=== PATIENT | female | born 1965 | race Caucasian/White ===

== ENCOUNTER 2020-11-29 09:49 | Inpatient (IN) | payer OTHER, SELFPAY ==
[2020-11-29] VITALS (23 sets, daily range): BP systolic 100–152; BP diastolic 45–91; PULSE 53–156; RESP 16–22; TEMP 36.3–36.8; O2SAT 96–99; BMI 21.2
--- NOTE | ~2020-11-29 | XR_ITS ---
EXAMINATION: XR CHEST CLINICAL INFORMATION: Chest pain, shortness of breath. Possible pneumonia COMPARISON: Chest radiographs 03/19/2020, 06/12/2019, 04/30/2019 TECHNIQUE: 2 views of the chest were obtained. FINDINGS: There are small bibasilar effusions blunting the costophrenic sulci. The heart is normal in size. The vascularity is normal. There is no lobar segmental airspace consolidation or definite groundglass opacity. There is no pneumothorax or pneumomediastinum. The hilar and mediastinal contours are normal. Bony structures show mild degenerative changes thoracic spine and small exostosis inferior right first costochondral junction similar to prior exam. XR/XR chest 2V IMPRESSION: Small bibasilar effusions.
--- NOTE | ~2020-11-29 | CT_ITS ---
EXAMINATION: CT ANGIOGRAM OF THE CHEST WITH AND WITHOUT CONTRAST (CT PULMONARY ANGIOGRAM FOR PE) CLINICAL INFORMATION: Chest pain, shortness of breath, elevated D-dimer. COMPARISON: None TECHNIQUE: Prior to contrast administration, noncontrast localization images were obtained. Subsequently, multidetector volumetric imaging was performed from the thoracic inlet to below the diaphragms following the administration of 80 mL Omnipaque 350 intravenous contrast. No contrast reaction reported Sagittal, coronal, and MIP oblique sagittal reformatted images were obtained on the CT workstation, uploaded to PACS, and reviewed. This CT examination was performed using dose optimization techniques as appropriate, variously including the following: *Automated exposure control *Adjustment of mA and/or kV according to patient size (this includes techniques or standardized protocols for targeted exams where dose is matched to indication/reason for exam; i.e. extremities or head) *Use of iterative reconstruction technique Total exam dose-length product 267 mGy-cm FINDINGS: QUALITY OF STUDY/CONTRAST BOLUS: Satisfactory. PULMONARY ARTERIES: No central or segmental pulmonary emboli. THORACIC AORTA: No aneurysm or dissection. LUNG: There is bilateral lower lobe compressive atelectasis/consolidation. The upper lungs are well expanded and clear. PLEURA: There are small bilateral pleural effusions. MEDIASTINUM: The heart size enlarged. No pericardial effusion. No hilar or mediastinal lymphadenopathy. No evidence of septal bowing or right heart strain. There are heterogenous-appearing thyroid lobes especially right lobe with calcification. CHEST WALL/AXILLA: No axillary or internal mammary lymphadenopathy. OSSEOUS STRUCTURES: No acute or suspicious osseous abnormality. UPPER ABDOMEN: Visualized liver, spleen, pancreas and bilateral adrenal glands are unremarkable. No reflux of contrast into the hepatic veins to suggest elevated right heart pressures. CT/CT angio chest PE protocol IMPRESSION: No evidence of PE. No evidence of aortic aneurysm or dissection. Bilateral small pleural effusions with underlying atelectasis/consolidation. Heterogenous thyroid gland with right lobe calcification. Correlation with thyroid ultrasound can be performed. VTE: negative.
--- NOTE | 2020-11-29 07:49 | ECG_ITS ---
Test Reason : TACHYCARDIA Blood Pressure : / mmHG Vent. Rate : 139 BPM Atrial Rate : 288 BPM P-R Int : 000 ms QRS Dur : 074 ms QT Int : 334 ms P-R-T Axes : 000 063 041 degrees QTc Int : 508 ms Atrial fibrillation with premature ventricular or aberrantly conducted complexes with rapid ventricular response Abnormal ECG When compared with ECG of 29-NOV-2020 09:55, Atrial fibrillation with rapid ventricular response has replaced Sinus rhythm Non-specific change in ST segment in Lateral leads Referred By: Martell Aquino Electronically Signed By:DULCE JAIME MD
--- NOTE | 2020-11-29 09:55 | ECG_ITS ---
Test Reason : CHEST PAIN Blood Pressure : / mmHG Vent. Rate : 113 BPM Atrial Rate : 113 BPM P-R Int : 136 ms QRS Dur : 072 ms QT Int : 316 ms P-R-T Axes : 054 068 055 degrees QTc Int : 433 ms Sinus tachycardia Biatrial enlargement Nonspecific T wave abnormality [place] depressions- consider pericarditis Abnormal ECG When compared with ECG of 19-MAR-2020 17:00, Vent. rate has increased BY 37 BPM [place] depressions present Referred By: Martell Aquino Electronically Signed By:Esau Campbell
--- NOTE | 2020-11-29 10:55 | ED_ITS ---
HPI - Chest Pain General Chief Complaint: Chest Pain Stated Complaint: chest pain Time Seen by Provider: 11/29/20 10:19 Source: patient Mode of arrival: ambulatory Limitations: no limitations History of Present Illness HPI narrative: 55-year-old female who presents emergency department for evaluation of chest pain x1 week. The patient states that she had a pericardial effusion and had a pericardial window done and June 2018. She states that since that time she has had at least 5 episodes of pericarditis. She states she was on colchicine for 1 year and continues to be on indomethacin. She states that 1 week prior she had a sudden onset midsternal and left-sided chest pain, she describes the pain as an aching throbbing sensation which is constant, worse with breathing worse with movement. She states the pain feels similar to her pericarditis type pain. She states the pain was getting better however yesterday she walked up a flight of stairs and then the pain got worse and since that time she has been feeling short of breath. She is also complaining of dyspnea on exertion. She denied fever, chills, cough, abdominal pain, nausea or vomiting. She states that her pain was 10/10 last night and is now 5/10 this morning. She last had an echocardiogram 1 year prior and she believes that her last CT scan of the chest was 1-2 years prior. Related Data Previous Rx's Medication Instructions Recorded indomethacin 75 mg 75 mg PO DAILY 90 Days #90 cap 09/29/20 capsule,extended release omeprazole 20 mg capsule,delayed 20 mg PO DAILY #90 cap 09/29/20 release Allergies Allergy/AdvReac Type Severity Reaction Status Date / Time No Known Allergies Allergy Unverified 06/08/20 15:23 [No Known Allergies*] Review of Systems Review of Systems: Yes all other systems are reviewed and are negative [facility] Past Medical History [facility] Narrative: Past medical history significant for recurrent pericarditis, diabetes mellitus, hypertension, hyperlipidemia. Past surgical history she has had 3 C sections, bilateral tubal ligation and herniorrhaphy. She denies tobacco, alcohol and drug use. Social History Social History Alcohol intake: never Smoking Status: Never smoker Use of substances other than those prescribed or required for medical reasons: No Advance Directives: No Advance Directives Information Provided: No Physical Exam Vital Signs: Vital Signs: Last Vital Signs Temp 98.0 F 11/29/20 10:20 Pulse 59 11/29/20 16:51 Resp 18 11/29/20 16:51 BP 120/69 11/29/20 16:51 Pulse Ox 99 11/29/20 16:51 Body Mass Index 21.2 Const: General: cooperative and healthy appearing Orientation/consciousness: oriented to person and oriented to place Limitations: no limitations HENMT: Head: Yes normal to inspection, Yes normocephalic and Yes atraumatic Ears: external ears normal General nose exam: Normal external nose present Face and sinus: Yes normal facial exam Mouth: Normal oral and palatal mucosa present Throat: Yes posterior oropharynx normal Eyes: Periorbital: periorbital findings normal Eyelids: Yes eyelids normal Conjunctivae: conjunctivae normal Sclerae: sclerae normal Corneas: corneas normal Pupils: Equal, round and reactive pupils present Direct Ophthalmoscopy: normal light reflex Neck: Neck: Yes full ROM, Yes no lymphadenopathy, Yes no meningeal signs, Yes trachea midline and Yes supple Chest: Chest palpation & inspection: normal inspection of the chest and normal palpation of entire chest wall Resp: Effort & Inspection: normal respiratory effort and able to speak in complete sentences Auscultation: clear to auscultation bilaterally Cardio: Rate: regular rate Rhythm: regular rhythm Heart sounds: S1 normal heart sound present, S2 normal heart sound present and no murmurs GI: Inspection: Yes normal to inspection Palpation (GI): Soft to palpation, nontender, no guarding, not rigid and No hepatosplenomegaly present : General: Yes no CVA tenderness Back/Spine/Pelvis: Back: no CVA tenderness Cervical Spine: normal cervical lordosis Thoracic/Lumbar Spine: thoracic and lumbar spine normal to inspection Skin: Lesions: no lesions Rashes: no rashes Wounds: no wounds Neuro: General: oriented to person, oriented to place and no meningeal signs Cranial nerves: Yes CN's II-XII intact bilaterally and Yes Equal, round and reactive pupils present Cognition (Neuro): normal cognition Motor exam (neuro): 5/5 motor strength present throughout Extrem: General: Yes normal to inspection and Yes full ROM Psych: Appearance: well kempt Mental Status: mental status grossly normal Speech and movement: Normal speech and movement present Affect: normal affect Attitude: cooperative Thought process: Normal thought process present Thought content: Normal thought content present Course Course Course Narrative: 55-year-old female with a history of recurrent pericarditis who presents emergency department for evaluation of 1 week of chest pain and shortness of breath, with symptoms getting worse 1 day prior. Physical examinat ion was unremarkable. Twelve EKG did reveal a sinus tachycardia otherwise was unremarkable. I did order a workup on this patient to include CBC, CMP, D- dimer, troponin and chest x-ray. She states that her pain is currently 10/10 and she was given Dilaudid 1 mg IV. 1312: The patient's troponin was below detectable limits which is reassuring. The patient's D-dimer was elevated at 3004, therefore I ordered a CT angiogram to rule out pulmonary embolism. The patient did get improvement of her pain with IV Dilaudid. On the radiation monitor the patient has had runs of tachycardia which look like atrial flutter at 150 beats per minute and one 4 beat run of ventricular tachycardia. The patient states that she could feel her heart palpitating but had no other associated symptoms. 1426: Patient continues to have more frequent bouts of ventricular tachycardia, atrial flutter and SVT. She was ordered to get Lopressor 5 mg IV. 1717: The CT pulmonary angiogram PE protocol revealed bilateral small pleural effusions but no evidence for pulmonary embolism. The patient was seen by our hospice team lead, Dr. Campbell. His impression is that the patient's symptoms are consistent with pericarditis and that the inflamed pericardium is causing the patient to have these arrhythmia. He recommended that the patient receive colchicine 1.2 mg orally now and metoprolol 25 mg orally. He recommended the patient be started on colchicine 0.6 mg p.o. b.i.d. and metoprolol 25 mg p.o. b.i.d.. I did discuss with the covering hospitalist and the patient will be admitted to [facility] for further management. MDM - Chest Pain Lab Data Result diagrams: 11/29/20 11:55 11/29/20 11:55 Labs: Lab Results 11/29/20 11/29/20 11/29/20 Range/Units 11:54 11:55 11:55 WBC 9.1 (4.8-10.8) X10*3/uL RBC 4.30 (4.20-5.50) X10*6/uL Hgb 13.3 (12.0-16.0) g/dl Hct 40.5 (37-47) % MCV 94.2 (80-98) fL MCH 30.9 (27.0-33.0) pg MCHC 32.8 (31.0-35.0) g/dl RDW 11.7 (11.0-16.0) % Plt Count 455 H (160-400) X10*3/uL MPV 9.9 (9.4-12.3) fL Immature Gran % (Auto) 0.8 H (0.0-0.4) % Neut % (Auto) 68.8 (45-73) % Lymph % (Auto) 21.9 (20-40) % [place] % (Auto) 6.8 (2-11) % Eos % (Auto) 1.4 (0-4) % Baso % (Auto) 0.3 (0-2) % Lymph # (Auto) 2.0 (1.2-4.9) X10*3/uL [place] # (Auto) 0.6 (0.1-1.2) X10*3/uL Eos # (Auto) 0.1 (0.0-0.4) X10*3/uL Baso # (Auto) 0.0 (0.0-0.2) X10*3/uL Abs Immat Gran (auto) 0.07 H (0.00-0.03) X10*3/uL Absolute Neuts (auto) 6.2 (2.0-8.3) X10*3/uL Absolute Nucleated RBC 0.000 (0.0-0.012) X10*3/uL Nucleated RBC % (auto) 0.0 (0.0-0.2) /100WBC D-Dimer 3004 NG/ML Sodium 137 (135-145) mmol/L Potassium 5.5 H (3.3-5.1) mmol/L Chloride 101 (96-108) mmol/L Carbon Dioxide 24 (22-29) mmol/L Anion Gap 18 (12-20) BUN 17 H (9-16) mg/dL Creatinine 0.96 (0.5-1.4) mg/dL Estim Creat Clear Calc 64.8 Estimated GFR 60 Random Glucose 326 H (60-115) mg/dL Calcium 10.1 (8.4-10.2) mg/dL Total Bilirubin 0.4 (0.0-1.0) mg/dL AST 16 (5-31) U/L ALT 22 (0-31) U/L Alkaline Phosphatase 99 (39-117) U/L Troponin I High Sens (<3.5-17.0) ng/L Total Protein 7.5 (6.5-8.0) g/dL Albumin 4.3 (3.5-5.0) g/dL 11/29/20 Range/Units 11:55 WBC (4.8-10.8) X10*3/uL RBC (4.20-5.50) X10*6/uL Hgb (12.0-16.0) g/dl Hct (37-47) % MCV (80-98) fL MCH (27.0-33.0) pg MCHC (31.0-35.0) g/dl RDW (11.0-16.0) % Plt Count (160-400) X10*3/uL MPV (9.4-12.3) fL Immature Gran % (Auto) (0.0-0.4) % Neut % (Auto) (45-73) % Lymph % (Auto) (20-40) % Harrison % (Auto) (2-11) % Eos % (Auto) (0-4) % Baso % (Auto) (0-2) % Lymph # (Auto) (1.2-4.9) X10*3/uL Harrison # (Auto) (0.1-1.2) X10*3/uL Eos # (Auto) (0.0-0.4) X10*3/uL Baso # (Auto) (0.0-0.2) X10*3/uL Abs Immat Gran (auto) (0.00-0.03) X10*3/uL Absolute Neuts (auto) (2.0-8.3) X10*3/uL Absolute Nucleated RBC (0.0-0.012) X10*3/uL Nucleated RBC % (auto) (0.0-0.2) /100WBC D-Dimer NG/ML Sodium (135-145) mmol/L Potassium (3.3-5.1) mmol/L Chloride (96-108) mmol/L Carbon Dioxide (22-29) mmol/L Anion Gap (12-20) BUN (9-16) mg/dL Creatinine (0.5-1.4) mg/dL Estim Creat Clear Calc Estimated GFR Random Glucose (60-115) mg/dL Calcium (8.4-10.2) mg/dL Total Bilirubin (0.0-1.0) mg/dL AST (5-31) U/L ALT (0-31) U/L Alkaline Phosphatase (39-117) U/L Troponin I High Sens < 3.5 (<3.5-17.0) ng/L Total Protein (6.5-8.0) g/dL Albumin (3.5-5.0) g/dL ECG Data ECG #1: Attestation: I personally reviewed and interpreted this ECG as follows: Interpretation: 0955: Sinus tachycardia with a rate of 113, normal [place], QR S and QTC intervals, no ST segment elevation or depression, no UT interval depression, besides the tachycardia, this is a normal EKG. Discharge Plan Discharge Clinical Impression: Acute pericarditis Patient Disposition: Admitted As Inpatient Prescriptions: No Action indomethacin 75 mg capsule, extended release 75 mg PO DAILY 90 Days Qty: 90 RF: 1 omeprazole 20 mg capsule,delayed release(DR/EC) 20 mg PO DAILY Qty: 90 RF: 1
[2020-11-29] MEDS: HYDROmorphone HCl 1 MG/ML SYRINGE IVPUSH ×2 (11:59→20:18)
[2020-11-29 12:00] LABS: MANUAL DIFF FLAG NO
[2020-11-29 12:04] LABS: Basophils Percent Auto 0.3 % (0-2); Eosinophils Absolute Auto 0.1 X10*3/uL (0.0-0.4); Eosinophils Percent Auto 1.4 % (0-4); Hematocrit 40.5 % (37-47); Hemoglobin 13.3 g/dl (12.0-16.0); Imm Gran Abs Auto 0.07 X10*3/uL (0.00-0.03); Imm Gran Pct Auto 0.8 % (0.0-0.4); Lymphocytes Percent Auto 21.9 % (20-40); Mean Corpuscular HGB Conc 32.8 g/dl (31.0-35.0); Mean Corpuscular Hemoglobin 30.9 pg (27.0-33.0); Mean Corpuscular Volume 94.2 fL (80-98); Mean Platelet Volume 9.9 fL (9.4-12.3); Monocytes Absolute Auto 0.6 X10*3/uL (0.1-1.2); Monocytes Percent Auto 6.8 % (2-11); Neutrophils Absolute Auto 6.2 X10*3/uL (2.0-8.3); Neutrophils Percent Auto 68.8 % (45-73); Platelet Count 455 X10*3/uL (160-400); Red Cell Distribution Width 11.7 % (11.0-16.0); White Blood Count 9.1 X10*3/uL (4.8-10.8)
[2020-11-29 12:19] LABS: D Dimer 3004 NG/ML
[2020-11-29 12:37] LABS: Troponin-I High Sensitivity < 3.5 ng/L (<3.5-17.0)
[2020-11-29 13:00] LABS: Alanine Aminotransferase 22 U/L (0-31); Albumin Level 4.3 g/dL (3.5-5.0); Alkaline Phosphatase 99 U/L (39-117); Anion Gap 18 (12-20); Aspartate Amino Transferase 16 U/L (5-31); Bilirubin Total 0.4 mg/dL (0.0-1.0); Blood Urea Nitrogen 17 mg/dL (9-16); Calcium 10.1 mg/dL (8.4-10.2); Carbon Dioxide 24 mmol/L (22-29); Chloride 101 mmol/L (96-108); Creatinine Clr Calc Pharmacy 64.8; Estimated Glomerular Filt Rate 60; Glucose Random 326 mg/dL (60-115); Potassium 5.5 mmol/L (3.3-5.1); Sodium 137 mmol/L (135-145); Total Protein 7.5 g/dL (6.5-8.0)
--- NOTE | 2020-11-29 14:20 | PC.NURSE ---
pt has been having occasional runs of v-tach, pt remains asymptomatic. md has been at bedside to update pt of plan of care. pt to be moved to room 6 and will continue to be on environmental monitoring specialist. pt aware of plan of care. pt to be medicated with lopressor 5mg ivp. pt' heart on occassion up to 170's.
[2020-11-29] MEDS: Metoprolol Tartrate 5 MG/5 ML VIAL IVPUSH ×3 (14:29→15:41)
--- NOTE | 2020-11-29 14:29 | PC.NURSE ---
pt's rhythm was sinus tach 171 and decrease to 70 . md at bedside. pt is now in sinus tach again at 160
[2020-11-29] MEDS: iohexoL 350 MG/ML 100 ML INFUS..BTL IV (15:30)
--- NOTE | 2020-11-29 15:36 | CA_ITS ---
Transthoracic Echocardiogram Patient (Last, First, Middle): Sydney Mcghee A Gender: Female Date of : 1965 Age: 55 Procedure Date: 11/29/2020 Procedure Type: Transthoracic Echocardiogram Location: ER Height: 152.4 cm Weight: 63.5 kg BSA: 1.60 m2 Heart Rate: bpm BP: 118 / 90 mmHg [place] Attendant: Referring MD: Martell Aquino MD Symptoms: Chest pain, arrhythmia is, rule out pericarditis Study Quality: Fair Conclusions: - The left ventricular systolic function is normal. The visually estimated ejection fraction is between 55-60%. - Normal right ventricular cavity size and systolic function. Findings Left Ventricle Normal left ventricular cavity size. There is mildly increased left ventricular wall thickness. The left ventricular systolic function is normal. The visually estimated ejection fraction is between 55-60%. There is no evidence of regional wall motion abnormalities. There is abnormal septal motion with excessive respiratory change. Diastolic function is indeterminate on the basis of available data. Right Ventricle Normal right ventricular cavity size and systolic function. Venous The inferior vena cava is normal in size and collapses greater than 50% with inspiration. Pericardium/Pleural There is no evidence of pericardial effusion. Prior Study Comparison Changes noted compared to prior study dated: 06/14/2019. EF 55-60% (was hyperdynamic before) Measurements 2D Linear Measurements IVSd: 1.15 0.6-0.9/0.6-1.0 cm LVIDd: 3.41 3.9-5.3/4.2-5.9 cm LVIDd Index: 2.13 2.4-3.2/2.2-3.1 cm/m2 LVIDs: 2.37 2.0-3.6 cm LVPWd: 1.16 0.7-1.1 cm LV Mass: 153.40 67-162/88-224 g LV Mass Index: 95.87 43-95/49-115 g/m2 2D Systolic Function EF 4C: 60.60 >55% EF 2C: 52.30 >55% EF BiP: 55.30 >55% Updated in Other Vendor System with Status of Final Esau Campbell MD electronically signed on 11/30/2020 4:17:27 PM with status of Final
--- NOTE | 2020-11-29 16:39 | PC.NURSE ---
pt had echocardiogram done at bedside.
--- NOTE | 2020-11-29 16:50 | PC.NURSE ---
dr martin (hospice nurse) at bedside. pt aware of plan of care.
[2020-11-29 17:25] LABS: T4 Thyroxine 10.8 ug/dL (4.5-12.0); Thyroid Stimulating Hormone 0.87 uIU/mL (0.32-4.0)
--- NOTE | 2020-11-29 17:27 | PC.NURSE ---
hosp rd lane) at bedside, pt aware of plan of care for admission to hosp.
[2020-11-29] MEDS: Metoprolol Tartrate 25 MG TABLET PO (17:42)
[2020-11-29] MEDS: Colchicine 0.6 MG TABLET 1.2 MG PO (17:42)
--- NOTE | 2020-11-29 17:50 | P.HPHOSP_ITS ---
History of Present Illness Date of Service: 11/29/20 Chief Complaint: Chest pain This is a 55-year-old female with a history of recurrent pericarditis who presents to the emergency department with chest pain. Patient has had multiple episodes of pericarditis in the past. She had been taking colchicine but this w as discontinued last spring. She has been taking indomethacin. On Friday she began having intermittent chest pain on the left side of her chest which was worse with lying down. She has also had associated shortness of breath. Her pain felt similar to previous episodes of pericarditis. She denied any palpitations until she was in the emergency department today in the emergency department she was noted to have multiple runs of nonsustained V-tach, what appeared to be atrial flutter. Due to elevated D-dimer, she underwent CTA which was negative for PE or dissection. Lab work was otherwise unremarkable. She was evaluated by the combustion analyst in the emergency department and underwent beds gabrielle echocardiogram. The results of the echo are pending at this time. Cardiology recommended starting oral metoprolol as well as colchicine. Review of Systems Review of Systems: Yes all other systems are reviewed and are negative Constitutional: Constitutional: Denies chills and Denies fever(s) Cardiovascular: Cardiovascular: Reports chest pain, Denies leg edema, Denies lightheadedness, Reports palpitations and Reports dyspnea Respiratory: Respiratory: Denies cough and Reports dyspnea Gastrointestinal: Gastrointestinal: Denies abdominal pain Endocrine: Endocrine: Reports palpitations [facility] Medical History (Updated 11/29/20 @ 17:58 by GÉNESIS Hill) Diabetes HLD (hyperlipidemia) HTN (hypertension) Pericarditis Functional capacity: independent ambulation Family History (Updated 11/29/20 @ 17:59 by GÉNESIS Hill) Sister Pericarditis Family history: reviewed and not pertinent Surgical History (Updated 11/29/20 @ 17:58 by GÉNESIS Hill) H/O: hysterectomy S/P pericardial window creation Social History Alcohol intake: never Smoking Status: Never smoker Use of substances other than those prescribed or required for medical reasons: No Advance Directives: No Advance Directives Information Provided: No Meds Allergies Allergy/AdvReac Type Severity Reaction Status Date / Time No Known Allergies Allergy Unverified 06/08/20 15:23 [No Known Allergies*] Active Medications: Current Medications Generic Name Dose Route Start Last Admin Trade Name Rosemarie PRN Reason Stop Dose Admin Insulin Human Lispro 0 unit 11/29/20 21:00 Insulin Lispro 100 Unit/Ml 3 Ml Vial SUBCUT QIDACHS [facility] Protocol Pharmacy Consult 1 each 11/29/20 17:19 Consult Rx Perform Med Rec MISCELLANE ONCE PRN Consult order Home Medications Medication Instructions Recorded Confirmed Last Taken Type atorvastatin 1 tab PO DAILY 11/29/20 11/29/20 Unknown History lisinopril 1 tab PO DAILY 11/29/20 11/29/20 Unknown History metformin 1 tab PO BID 11/29/20 11/29/20 Unknown History omeprazole 1 cap PO DAILY 11/29/20 11/29/20 Unknown History Physical Exam Vital Signs and Narrative: Vital Signs: Last Vital Signs Temp 97.6 F 11/29/20 17:37 Pulse 60 11/29/20 17:42 Resp 19 11/29/20 17:37 BP 116/73 11/29/20 17:42 Pulse Ox 98 11/29/20 17:37 Body Mass Index 21.2 Const: General: cooperative, well developed, alert and awake Nutritional Appearance: well nourished Orientation/consciousness: patient oriented x3 HENMT: Head: Yes normocephalic and Yes atraumatic Eyes: Sclerae: sclerae normal Chest: Chest palpation & inspection: normal inspection of the chest Resp: Effort & Inspection: normal respiratory effort and no respiratory distress Auscultation: clear to auscultation bilaterally Cardio: Rate: regular rate Rhythm: regular rhythm GI: Palpation (GI): Soft to palpation and nontender Skin: General skin exam: no rashes or lesions noted Neuro: General: patient oriented x3 Cranial nerves: Yes CN's II-XII intact bilaterally and Yes Bilaterally intact EOM present Extrem: General: Yes normal to inspection Results Labs CBC and Chem 7: 11/29/20 11:55 11/29/20 11:55 Labs: Laboratory Results - last 24 hr 11/29/20 11/29/20 11/29/20 11:54 11:55 11:55 MCV 94.2 MCH 30.9 MCHC 32.8 RDW 11.7 Plt Count 455 H MPV 9.9 Immature Gran % (Auto) 0.8 H Neut % (Auto) 68.8 Lymph % (Auto) 21.9 [place] % (Auto) 6.8 Eos % (Auto) 1.4 Baso % (Auto) 0.3 Lymph # (Auto) 2.0 [place] # (Auto) 0.6 Eos # (Auto) 0.1 Baso # (Auto) 0.0 Abs Immat Gran (auto) 0.07 H Absolute Neuts (auto) 6.2 Absolute Nucleated RBC 0.000 Nucleated RBC % (auto) 0.0 D-Dimer 3004 Anion Gap 18 Estim Creat Clear Calc 64.8 Estimated GFR 60 Random Glucose 326 H Calcium 10.1 Total Bilirubin 0.4 AST 16 ALT 22 Alkaline Phosphatase 99 Troponin I High Sens Total Protein 7.5 Albumin 4.3 TSH 0.87 Thyroxine (T4) 10.8 11/29/20 11:55 MCV MCH MCHC RDW Plt Count MPV Immature Gran % (Auto) Neut % (Auto) Lymph % (Auto) [place] % (Auto) Eos % (Auto) Baso % (Auto) Lymph # (Auto) [place] # (Auto) Eos # (Auto) Baso # (Auto) Abs Immat Gran (auto) Absolute Neuts (auto) Absolute Nucleated RBC Nucleated RBC % (auto) D-Dimer Anion Gap Estim Creat Clear Calc Estimated GFR Random Glucose Calcium Total Bilirubin AST ALT Alkaline Phosphatase Troponin I High Sens < 3.5 Total Protein Albumin TSH Thyroxine (T4) Imaging Radiologist's Impressions: Impressions Chest X-Ray 11/29/20 10:54 IMPRESSION: Small bibasilar effusions. Chest CTA 11/29/20 13:08 IMPRESSION: No evidence of PE. No evidence of aortic aneurysm or dissection. Bilateral small pleural effusions with underlying atelectasis/consolidation. Heterogenous thyroid gland with right lobe calcification. Correlation with thyroid ultrasound can be performed. VTE: negative. Assessment and Plan (1) Acute pericarditis: Qualifiers: Pericarditis type: unspecified type Qualified Code(s): I30.9 - Acute pericarditis, unspecified Status: Acute This is a 55-year-old female with history of diabetes, hypertension, dyslipidemia, recurrent pericarditis status post pericardial window who presents to the emergency department with chest pain noted to have episodes of NSVT while in ED Chest pain Likely secondary to pericarditis hs trop <3.5 bedside echo done in ED, report pending Cardiology eval pt in ED, recommends colchicine NSVT may be r/t above pericarditis echo pending -metoprolol -check electrolytes with goal to keep K >4, mag >2 -cardiology following DM hold metformin due to recent contrast study -SSI, POCs HTN Hold lisinopril until repeat K returns HLD Continue statin dvt ppx - lovenox code status - full code This case was discussed with Dr. Pate
[2020-11-29 17:51] LABS: Magnesium 1.7 mg/dL (1.6-2.6)
--- NOTE | 2020-11-29 18:46 | PM.EVENT ---
Event Note Date of Service: 11/29/20 Event Note: Admission note the patient was seen and evaluated with GÉNESIS Adames. I agree with her note, assessment and plan with the following. In summary, a 55 years old lady with PMH of 2 diabetes, HTN, pericarditis who presents to the hospital complaining of 1 week history of chest pain which get worse this morning. The pain is intermittent and worse when she lays down. She has a history of pericarditis previously on multiple occasions. Noticed to have atrial fibrillation and NSVDs white in the emergency. Evaluated by Cardiology with plan to admit her for treatment of acute pericarditis. Chest pain Secondary to Acute pericarditis Negative troponin Pending echo Start colchicine and continue indomethacin NSVDs Cardiology evaluated the patient, likely from pancreatitis Start metoprolol Keep Mag above 2 Keep on telemetry Rest of evaluations by PA note.
[2020-11-29] MEDS: Magnesium Sulfate/H2O 2 GM/50 ML PIGGYBACK IV (19:34)
[2020-11-29 20:12] LABS: COVID-19 Test Negative (Negative)
[2020-11-29 20:27] LABS: Potassium 4.6 mmol/L (3.3-5.1)
[2020-11-29 21:19] LABS: Glucose, Whole Blood 221 mg/dL (60-115)
[2020-11-29] MEDS: ondansetron HCL 4 MG/2 ML VIAL IVPUSH (21:37)
[2020-11-29] MEDS: Insulin Lispro 100 UNIT/ML 3 ML VIAL SUBCUT (21:39)
[2020-11-29] MEDS: 0.9 % Sodium Chloride Flush 3 ML SYRINGE IVFLUSH (21:40)
[2020-11-30] VITALS (9 sets, daily range): BP systolic 100–125; BP diastolic 55–71; PULSE 56–80; RESP 16–20; TEMP 36.1–37; O2SAT 94–97
[2020-11-30] MEDS: Acetaminophen 325 MG TABLET 650 MG PO ×2 (00:02→23:03)
--- NOTE | 2020-11-30 00:15 | P.CONCA_ITS ---
History of Present Illness History of Present Illness Date of Service: 11/29/20 Requesting physician: Casey Nelson Chief complaint: Pericarditis Narrative: Pleasant 55-year-old female who was seen on 11/29/20 for chest pain ongoing for 2 weeks. She describes throbbing and pressure in the chest which is similar to her previous pericarditis episodes. She has 4 episodes in the past and had pericardial window for effusion in the past. She was on colchicine and i ndomethacin but was taken off of them. Pain is worse with laying back and better with sitting up. Pleuritic in nature. Elevated D dimer but no PE. CT did showed bilateral pleural effusions. She also had episodes of NSVT and atrial arrhythmia which was not captured on ECG but multiple runs of Afib or flutter. [facility] Past Medical History Medical History (Updated 11/30/20 @ 00:22 by Esau Campbell MD) Diabetes HLD (hyperlipidemia) HTN (hypertension) Pericarditis Functional capacity: independent ambulation Family History Family History (Updated 11/29/20 @ 17:59 by GÉNESIS Hill) Sister Pericarditis Family history: reviewed and not pertinent Surgical History Surgical History H/O: hysterectomy S/P pericardial window creation Social History Social History Household Members: Family Housing: House Do you presently have visiting nurse or other home services: No Alcohol intake: never Smoking Status: Never smoker Use of substances other than those prescribed or required for medical reasons: No Currently Displaying Signs/Symptoms of Drug Intoxication Withdrawal: No Have you been hit, kicked, punched, or otherwise hurt by someone within the past year? If so, by whom?: No Do you feel safe in your current relationship?: Yes Is there a partner from a previous relationship who is making you feel unsafe now?: No Are you made to feel afraid or neglected: No Advance Directives: No Advance Directives Information Provided: No Do you have thoughts of harming others: None Do you have a plan to hurt others: No Plan Recently lost weight without trying: No Meds Allergies Allergy/AdvReac Type Severity Reaction Status Date / Time No Known Allergies Allergy Unverified 06/08/20 15:23 [No Known Allergies*] Active Medications: Current Medications Generic Name Dose Route Start Last Admin Trade Name Freq PRN Reason Stop Dose Admin Acetaminophen 650 mg 11/29/20 21:22 11/30/20 00:02 Acetaminophen 325 Mg Tablet PO 650 mg Q6H PRN Administration Pain, Mild (Pain Scale 1-3) Atorvastatin Calcium 10 mg 11/30/20 09:00 Atorvastatin Calcium 10 Mg Tablet PO DAILY [facility] Colchicine 0.6 mg 11/30/20 09:00 Colchicine 0.6 Mg Tablet PO BID [facility] Docusate Sodium 100 mg 11/29/20 21:22 Docusate Sodium 100 Mg Capsule PO DAILY PRN Constipation Enoxaparin Sodium 40 mg 11/29/20 22:00 11/29/20 21:40 Enoxaparin Sodium 40 Mg/0.4 Ml Syringe SUBCUT Not Given Q24H [facility] Indomethacin 75 mg 11/30/20 09:00 Indomethacin 25 Mg Capsule PO DAILY [facility] Insulin Human Lispro 0 unit 11/29/20 21:00 11/29/20 21:39 Insulin Lispro 100 Unit/Ml 3 Ml Vial SUBCUT 4 unit QIDACHS [facility] Administration Protocol Metoprolol Tartrate 25 mg 11/30/20 09:00 Metoprolol Tartrate 25 Mg Tablet PO BID [facility] Protocol Morphine Sulfate 2 mg 11/29/20 21:22 Morphine Sulfate 2 Mg/Ml Cartridge IVPUSH Q4H PRN Pain, Severe (Pain Scale 7-10) Omeprazole 40 mg 11/30/20 06:30 Omeprazole 40 Mg Capsule.Dr PO DAILY@0630 [facility] Ondansetron HCl 4 mg 11/29/20 21:22 11/29/20 21:37 Ondansetron Hcl 4 Mg/2 Ml Vial IVPUSH 4 mg Q8H PRN Administration Nausea and Vomiting Pharmacy Consult 1 each 11/29/20 17:19 Consult Rx Perform Med Rec MISCELLANE ONCE PRN Consult order Sodium Chloride 3 ml 11/30/20 00:00 11/29/20 21:40 0.9 % Sodium Chloride Flush 3 Ml Syringe IVFLUSH 3 ml QSHIFT [facility] Administration Home Medications Medication Instructions Recorded Confirmed Last Taken Type atorvastatin 1 tab PO DAILY 11/29/20 11/29/20 Unknown History lisinopril 1 tab PO DAILY 11/29/20 11/29/20 Unknown History metformin 1 tab PO BID 11/29/20 11/29/20 Unknown History omeprazole 1 cap PO DAILY 11/29/20 11/29/20 Unknown History Physical Exam Vital Signs: Vital Signs: Last Vital Signs Temp 98.2 F 11/29/20 23:42 Pulse 67 11/29/20 23:42 Resp 18 11/29/20 23:42 BP 121/64 11/29/20 23:42 Pulse Ox 96 11/29/20 23:42 Body Mass Index 21.2 GENERAL APPEARANCE: in no acute distress, well developed, well nourished. HEENT: unremarkable. HEAD: normocephalic, atraumatic. NECK/THYROID: no carotid bruit, no jugular venous distention. SKIN: no suspicious lesions, warm and dry. HEART: no murmurs, regular rate and rhythm, S1, S2 normal. LUNGS: clear to auscultation bilaterally. ABDOMEN: normal, bowel sounds present, soft, nontender, nondistended. EXTREMITIES: no clubbing, cyanosis, or edema. PERIPHERAL PULSES: equal. NEUROLOGIC: nonfocal, alert and oriented. PSYCH: mood/affect full range. Results Labs and Meds Result diagrams: 11/29/20 11:55 11/29/20 19:45 Lab results: Laboratory Results - last 24 hr 11/29/20 11/29/20 11/29/20 11:54 11:55 11:55 WBC 9.1 RBC 4.30 Hgb 13.3 Hct 40.5 MCV 94.2 MCH 30.9 MCHC 32.8 RDW 11.7 Plt Count 455 H MPV 9.9 Immature Gran % (Auto) 0.8 H Neut % (Auto) 68.8 Lymph % (Auto) 21.9 [place] % (Auto) 6.8 Eos % (Auto) 1.4 Baso % (Auto) 0.3 Lymph # (Auto) 2.0 [place] # (Auto) 0.6 Eos # (Auto) 0.1 Baso # (Auto) 0.0 Abs Immat Gran (auto) 0.07 H Absolute Neuts (auto) 6.2 Absolute Nucleated RBC 0.000 Nucleated RBC % (auto) 0.0 D-Dimer 3004 Sodium 137 Potassium 5.5 H Chloride 101 Carbon Dioxide 24 Anion Gap 18 BUN 17 H Creatinine 0.96 Estim Creat Clear Calc 64.8 Estimated GFR 60 POC Glucose Random Glucose 326 H Calcium 10.1 Magnesium 1.7 Total Bilirubin 0.4 AST 16 ALT 22 Alkaline Phosphatase 99 Troponin I High Sens Total Protein 7.5 Albumin 4.3 TSH 0.87 Thyroxine (T4) 10.8 COVID-19 ([facility]) COVID-19 Clin Com 11/29/20 11/29/20 11/29/20 11:55 19:45 19:45 WBC RBC Hgb Hct MCV MCH MCHC RDW Plt Count MPV Immature Gran % (Auto) Neut % (Auto) Lymph % (Auto) [place] % (Auto) Eos % (Auto) Baso % (Auto) Lymph # (Auto) [place] # (Auto) Eos # (Auto) Baso # (Auto) Abs Immat Gran (auto) Absolute Neuts (auto) Absolute Nucleated RBC Nucleated RBC % (auto) D-Dimer Sodium Potassium 4.6 Chloride Carbon Dioxide Anion Gap BUN Creatinine Estim Creat Clear Calc Estimated GFR POC Glucose Random Glucose Calcium Magnesium Total Bilirubin AST ALT Alkaline Phosphatase Troponin I High Sens < 3.5 Total Protein Albumin TSH Thyroxine (T4) COVID-19 ([facility]) Negative COVID-19 Clin Com See Note 11/29/20 21:13 WBC RBC Hgb Hct MCV MCH MCHC RDW Plt Count MPV Immature Gran % (Auto) Neut % (Auto) Lymph % (Auto) [place] % (Auto) Eos % (Auto) Baso % (Auto) Lymph # (Auto) [place] # (Auto) Eos # (Auto) Baso # (Auto) Abs Immat Gran (auto) Absolute Neuts (auto) Absolute Nucleated RBC Nucleated RBC % (auto) D-Dimer Sodium Potassium Chloride Carbon Dioxide Anion Gap BUN Creatinine Estim Creat Clear Calc Estimated GFR POC Glucose 221 H Random Glucose Calcium Magnesium Total Bilirubin AST ALT Alkaline Phosphatase Troponin I High Sens Total Protein Albumin TSH Thyroxine (T4) COVID-19 ([facility]) COVID-19 Clin Com Imaging Radiologist's impression: Impressions Chest X-Ray 11/29/20 10:54 IMPRESSION: Small bibasilar effusions. Chest CTA 11/29/20 13:08 IMPRESSION: No evidence of PE. No evidence of aortic aneurysm or dissection. Bilateral small pleural effusions with underlying atelectasis/consolidation. Heterogenous thyroid gland with right lobe calcification. Correlation with thyroid ultrasound can be performed. VTE: negative. Assessment and Plan (1) Acute pericarditis: Qualifiers: Pericarditis type: unspecified type Qualified Code(s): I30.9 - Acute pericarditis, unspecified Status: Acute (2) Atrial arrhythmia: Status: Acute (3) NSVT (nonsustained ventricular tachycardia): Status: Acute Pleasant female with background of pericarditis presenting with another episode. Etiology is unclear. She also has bilateral pleural effusions. Start colchicine. Can use indomethacin with it but would not use group home. BB for the arrhythmia -not uncommon with pericarditis to have arrhythmia. If any sustained rhythm then ECG to confirm Afib/flutter. Currently holding off anticoagulation. She may need YONATAN at discharge. Will check echo to assess for RWMA given NSVT. This can also be Jamal phenomenon. Will check CRP. We will follow along with you.
[2020-11-30] MEDS: Omeprazole 40 MG CAPSULE.DR PO (05:16)
[2020-11-30 06:16] LABS: MANUAL DIFF FLAG NO
[2020-11-30 06:23] LABS: Basophils Percent Auto 0.4 % (0-2); Eosinophils Absolute Auto 0.2 X10*3/uL (0.0-0.4); Eosinophils Percent Auto 2.5 % (0-4); Hemoglobin 12.6 g/dl (12.0-16.0); Imm Gran Abs Auto 0.06 X10*3/uL (0.00-0.03); Imm Gran Pct Auto 0.7 % (0.0-0.4); Lymphocytes Absolute Auto 2.8 X10*3/uL (1.2-4.9); Lymphocytes Percent Auto 33.9 % (20-40); Mean Corpuscular HGB Conc 32.3 g/dl (31.0-35.0); Mean Corpuscular Hemoglobin 30.7 pg (27.0-33.0); Mean Corpuscular Volume 95.1 fL (80-98); Mean Platelet Volume 9.9 fL (9.4-12.3); Monocytes Absolute Auto 0.6 X10*3/uL (0.1-1.2); Monocytes Percent Auto 7.1 % (2-11); Neutrophils Absolute Auto 4.6 X10*3/uL (2.0-8.3); Neutrophils Percent Auto 55.4 % (45-73); Platelet Count 497 X10*3/uL (160-400); Red Cell Distribution Width 11.7 % (11.0-16.0); White Blood Count 8.3 X10*3/uL (4.8-10.8)
[2020-11-30 06:53] LABS: Anion Gap 13 (12-20); Blood Urea Nitrogen 24 mg/dL (9-16); Calcium 9.4 mg/dL (8.4-10.2); Carbon Dioxide 29 mmol/L (22-29); Chloride 100 mmol/L (96-108); Creatinine Clr Calc Pharmacy 73.8; Estimated Glomerular Filt Rate > 60; Glucose Random 229 mg/dL (60-115); Potassium 4.5 mmol/L (3.3-5.1); Sodium 137 mmol/L (135-145)
[2020-11-30 07:14] LABS: Glucose, Whole Blood 192 mg/dL (60-115)
[2020-11-30] MEDS: Insulin Lispro 100 UNIT/ML 3 ML VIAL SUBCUT ×4 (07:57→21:01)
[2020-11-30] MEDS: 0.9 % Sodium Chloride Flush 3 ML SYRINGE IVFLUSH ×3 (08:08→21:03)
[2020-11-30] MEDS: Indomethacin 25 MG CAPSULE 75 MG PO (09:45)
[2020-11-30] MEDS: Atorvastatin Calcium 10 MG TABLET PO (09:46)
[2020-11-30] MEDS: Colchicine 0.6 MG TABLET PO ×2 (09:46→21:03)
[2020-11-30] MEDS: Metoprolol Tartrate 25 MG TABLET PO ×2 (09:46→23:01)
[2020-11-30 11:05] LABS: Glucose, Whole Blood 267 mg/dL (60-115)
--- NOTE | 2020-11-30 11:28 | PM.PNCARD ---
Subjective Subjective Date of Service: 11/30/20 Interval history: Feeling better Physical Exam Vital Signs: Last Vital Signs Temp 97 F 11/30/20 07:03 Pulse 67 11/30/20 09:46 Resp 16 11/30/20 07:03 BP 120/68 11/30/20 09:46 Pulse Ox 96 11/30/20 07:03 Body Mass Index 21.2 GENERAL APPEARANCE: in no acute distress, well developed, well nourished. HEENT: unremarkable. HEAD: normocephalic, atraumatic. NECK/THYROID: no carotid bruit, no jugular venous distention. SKIN: no suspicious lesions, warm and dry. HEART: no murmurs, regular rate and rhythm, S1, S2 normal. LUNGS: clear to auscultation bilaterally. ABDOMEN: normal, bowel sounds present, soft, nontender, nondistended. EXTREMITIES: no clubbing, cyanosis, or edema. PERIPHERAL PULSES: equal. NEUROLOGIC: nonfocal, alert and oriented. PSYCH: mood/affect full range. Results Labs and Meds Result diagrams: 11/30/20 05:38 11/30/20 05:38 Lab results: Laboratory Results - last 24 hr 11/29/20 11/29/20 11/29/20 11:54 11:55 11:55 WBC 9.1 RBC 4.30 Hgb 13.3 Hct 40.5 MCV 94.2 MCH 30.9 MCHC 32.8 RDW 11.7 Plt Count 455 H MPV 9.9 Immature Gran % (Auto) 0.8 H Neut % (Auto) 68.8 Lymph % (Auto) 21.9 [place] % (Auto) 6.8 Eos % (Auto) 1.4 Baso % (Auto) 0.3 Lymph # (Auto) 2.0 [place] # (Auto) 0.6 Eos # (Auto) 0.1 Baso # (Auto) 0.0 Abs Immat Gran (auto) 0.07 H Absolute Neuts (auto) 6.2 Absolute Nucleated RBC 0.000 Nucleated RBC % (auto) 0.0 D-Dimer 3004 Sodium 137 Potassium 5.5 H Chloride 101 Carbon Dioxide 24 Anion Gap 18 BUN 17 H Creatinine 0.96 Estim Creat Clear Calc 64.8 Estimated GFR 60 POC Glucose Random Glucose 326 H Calcium 10.1 Magnesium 1.7 Total Bilirubin 0.4 AST 16 ALT 22 Alkaline Phosphatase 99 Troponin I High Sens Total Protein 7.5 Albumin 4.3 TSH 0.87 Thyroxine (T4) 10.8 COVID-19 ([facility]) COVID-19 [employer] 11/29/20 11/29/20 11/29/20 11:55 19:45 19:45 WBC RBC Hgb Hct MCV MCH MCHC RDW Plt Count MPV Immature Gran % (Auto) Neut % (Auto) Lymph % (Auto) [place] % (Auto) Eos % (Auto) Baso % (Auto) Lymph # (Auto) [place] # (Auto) Eos # (Auto) Baso # (Auto) Abs Immat Gran (auto) Absolute Neuts (auto) Absolute Nucleated RBC Nucleated RBC % (auto) D-Dimer Sodium Potassium 4.6 Chloride Carbon Dioxide Anion Gap BUN Creatinine Estim Creat Clear Calc Estimated GFR POC Glucose Random Glucose Calcium Magnesium Total Bilirubin AST ALT Alkaline Phosphatase Troponin I High Sens < 3.5 Total Protein Albumin TSH Thyroxine (T4) COVID-19 ([facility]) Negative COVID-19 [employer] See Note 11/29/20 11/30/20 11/30/20 21:13 05:38 05:38 WBC 8.3 RBC 4.10 L Hgb 12.6 Hct 39.0 MCV 95.1 MCH 30.7 MCHC 32.3 RDW 11.7 Plt Count 497 H MPV 9.9 Immature Gran % (Auto) 0.7 H Neut % (Auto) 55.4 Lymph % (Auto) 33.9 [place] % (Auto) 7.1 Eos % (Auto) 2.5 Baso % (Auto) 0.4 Lymph # (Auto) 2.8 [place] # (Auto) 0.6 Eos # (Auto) 0.2 Baso # (Auto) 0.0 Abs Immat Gran (auto) 0.06 H Absolute Neuts (auto) 4.6 Absolute Nucleated RBC 0.000 Nucleated RBC % (auto) 0.0 D-Dimer Sodium 137 Potassium 4.5 Chloride 100 Carbon Dioxide 29 Anion Gap 13 BUN 24 H Creatinine 0.84 Estim Creat Clear Calc 73.8 Estimated GFR > 60 POC Glucose 221 H Random Glucose 229 H Calcium 9.4 D Magnesium Total Bilirubin AST ALT Alkaline Phosphatase Troponin I High Sens Total Protein Albumin TSH Thyroxine (T4) COVID-19 ([facility]) COVID-NV[employer] 11/30/20 11/30/20 07:01 11:02 WBC RBC Hgb Hct MCV MCH MCHC RDW Plt Count MPV Immature Gran % (Auto) Neut % (Auto) Lymph % (Auto) [place] % (Auto) Eos % (Auto) Baso % (Auto) Lymph # (Auto) [place] # (Auto) Eos # (Auto) Baso # (Auto) Abs Immat Gran (auto) Absolute Neuts (auto) Absolute Nucleated RBC Nucleated RBC % (auto) D-Dimer Sodium Potassium Chloride Carbon Dioxide Anion Gap BUN Creatinine Estim Creat Clear Calc Estimated GFR POC Glucose 192 H 267 H Random Glucose Calcium Magnesium Total Bilirubin AST ALT Alkaline Phosphatase Troponin I High Sens Total Protein Albumin TSH Thyroxine (T4) COVID-19 ([facility]) COVID-19 Clin Com Imaging Radiologist's impression: Impressions Chest X-Ray 11/29/20 10:54 IMPRESSION: Small bibasilar effusions. Chest CTA 11/29/20 13:08 IMPRESSION: No evidence of PE. No evidence of aortic aneurysm or dissection. Bilateral small pleural effusions with underlying atelectasis/consolidation. Heterogenous thyroid gland with right lobe calcification. Correlation with thyroid ultrasound can be performed. VTE: negative. 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 She was started on colchicine and is doing much better. She had runs of atrial arrhythmia with differentials of atrial fibrillation and flutter while she was in the ER. She also had nonsustained VT. She was started on metoprolol and since then has not had any more arrhythmia. She is doing well with colchicine. I think indomethacin can be stopped at discharge. She should stay on colchicine long-term because she has had multiple recurrences. She said she tolerated colchicine the past quite well. Echocardiography was somewhat limited and we will do echo with [place] today for wall motion assessment. I think we do a cardiac event monitor on her as outpatient to make sure she does not develop more atrial fibrillation episodes because she was asymptomatic when she had atrial arrhythmia in the ER. Thank you for allowing me to participate in the care of your patient. Please feel free to contact me if you have any questions. Fall Risk Details Current Medications: Current Medications Generic Name Dose Route Start Last Admin Trade Name Freq PRN Reason Stop Dose Admin Acetaminophen 650 mg 11/29/20 21:22 11/30/20 00:02 Acetaminophen 325 Mg Tablet PO 650 mg Q6H PRN Administration Pain, Mild (Pain Scale 1-3) Atorvastatin Calcium 10 mg 11/30/20 09:00 11/30/20 09:46 Atorvastatin Calcium 10 Mg Tablet PO 10 mg DAILY [facility] Administration Colchicine 0.6 mg 11/30/20 09:00 11/30/20 09:46 Colchicine 0.6 Mg Tablet PO 0.6 mg BID [facility] Administration Docusate Sodium 100 mg 11/29/20 21:22 Docusate Sodium 100 Mg Capsule PO DAILY PRN Constipation Enoxaparin Sodium 40 mg 11/29/20 22:00 11/29/20 21:40 Enoxaparin Sodium 40 Mg/0.4 Ml Syringe SUBCUT Not Given Q24H [facility] Indomethacin 75 mg 11/30/20 09:00 11/30/20 09:45 Indomethacin 25 Mg Capsule PO 75 mg DAILY [facility] Administration Insulin Human Lispro 0 unit 11/29/20 21:00 11/30/20 07:57 Insulin Lispro 100 Unit/Ml 3 Ml Vial SUBCUT 2 unit QIDACHS [facility] Administration Protocol Metoprolol Tartrate 25 mg 11/30/20 09:00 11/30/20 09:46 Metoprolol Tartrate 25 Mg Tablet PO 25 mg BID [facility] Administration Protocol Morphine Sulfate 2 mg 11/29/20 21:22 Morphine Sulfate 2 Mg/Ml Cartridge IVPUSH Q4H PRN Pain, Severe (Pain Scale 7-10) Omeprazole 40 mg 11/30/20 06:30 11/30/20 05:16 Omeprazole 40 Mg Capsule. PO 40 mg DAILY@0630 [facility] Administration Ondansetron HCl 4 mg 11/29/20 21:22 11/29/20 21:37 Ondansetron Hcl 4 Mg/2 Ml Vial IVPUSH 4 mg Q8H PRN Administration Nausea and Vomiting Pharmacy Consult 1 each 11/29/20 17:19 Consult Rx Perform Med Rec MISCELLANE ONCE PRN Consult order Sodium Chloride 3 ml 11/30/20 00:00 11/30/20 08:08 0.9 % Sodium Chloride Flush 3 Ml Syringe IVFLUSH 3 ml QSHIFT [facility] Administration Time Spent With Patient Time: Total time spent is greater than 50% in coordination of care (as documented) at patient's floor/unit and/or counseling patient: Time with patient: less than 15 minutes
--- NOTE | 2020-11-30 14:37 | P.PNIM_ITS ---
Subjective Subjective Date of Service: 11/30/20 Interval History: the patient was seen and evaluated this morning Laying in bed, feels comfortable Home arrhythmias noted overnight, mainly atrial, it no ventricular arrhythmias Denies any fever, chills or shortness of breath No reported other overnight events. Systemic review: No fever, chills or weakness Mild chest tightness but no pain anymore, no palpitation No shortness of breath or coughing No abdominal pain, nausea or vomiting No urinary symptoms No any rash or wounds Physical Exam Vital Signs: Vital Signs: Last Vital Signs Temp 97 F 11/30/20 11:29 Pulse 56 11/30/20 11:29 Resp 17 11/30/20 11:29 BP 121/60 11/30/20 11:29 Pulse Ox 97 11/30/20 11:29 Body Mass Index 21.2 Const: Other: Constitutional : Alert, oriented, not in distress Neck : Normal inspection, Supple Cardiovascular : RRR, S1 S2, no lower extremity edema Respiratory : Good bilateral air entry decrease head in the right lower lobe, no crackles, wheezes or rhonchi Gastrointestinal: soft, lax, Normal bowel sounds, Non tender Skin : Warm/Dry, No rash Neurological : Alert & oriented x3, No focal deficit Objective Data Current Medications Generic Name Dose Route Start Last Admin Trade Name Freq PRN Reason Stop Dose Admin Acetaminophen 650 mg 11/29/20 21:22 11/30/20 00:02 Acetaminophen 325 Mg Tablet PO 650 mg Q6H PRN Administration Pain, Mild (Pain Scale 1-3) Atorvastatin Calcium 10 mg 11/30/20 09:00 11/30/20 09:46 Atorvastatin Calcium 10 Mg Tablet PO 10 mg DAILY [facility] Administration Colchicine 0.6 mg 11/30/20 09:00 11/30/20 09:46 Colchicine 0.6 Mg Tablet PO 0.6 mg BID [facility] Administration Docusate Sodium 100 mg 11/29/20 21:22 Docusate Sodium 100 Mg Capsule PO DAILY PRN Constipation Enoxaparin Sodium 40 mg 11/29/20 22:00 11/29/20 21:40 Enoxaparin Sodium 40 Mg/0.4 Ml Syringe SUBCUT Not Given Q24H [facility] Indomethacin 75 mg 11/30/20 09:00 11/30/20 09:45 Indomethacin 25 Mg Capsule PO 75 mg DAILY [facility] Administration Insulin Human Lispro 0 unit 11/29/20 21:00 11/30/20 11:47 Insulin Lispro 100 Unit/Ml 3 Ml Vial SUBCUT 6 unit QIDACHS [facility] Administration Protocol Metoprolol Tartrate 25 mg 11/30/20 09:00 11/30/20 09:46 Metoprolol Tartrate 25 Mg Tablet PO 25 mg BID [facility] Administration Protocol Morphine Sulfate 2 mg 11/29/20 21:22 Morphine Sulfate 2 Mg/Ml Cartridge IVPUSH Q4H PRN Pain, Severe (Pain Scale 7-10) Omeprazole 40 mg 11/30/20 06:30 11/30/20 05:16 Omeprazole 40 Mg Capsule. PO 40 mg DAILY@0630 [facility] Administration Ondansetron HCl 4 mg 11/29/20 21:22 11/29/20 21:37 Ondansetron Hcl 4 Mg/2 Ml Vial IVPUSH 4 mg Q8H PRN Administration Nausea and Vomiting Pharmacy Consult 1 each 11/29/20 17:19 Consult Rx Perform Med Rec MISCELLANE ONCE PRN Consult order Sodium Chloride 3 ml 11/30/20 00:00 11/30/20 08:08 0.9 % Sodium Chloride Flush 3 Ml Syringe IVFLUSH 3 ml QSHIFT [facility] Administration Labs CBC & Chem 7: 11/30/20 05:38 11/30/20 05:38 Assessment and Plan (1) Acute pericarditis: Status: Acute (2) Atrial arrhythmia: Status: Acute (3) NSVT (nonsustained ventricular tachycardia): Status: Acute Assessment and Plan: This is a 55-year-old female with history of diabetes, hypertension, dyslipidemia, recurrent pericarditis status post pericardial window who presents to the emergency department with chest pain noted to have episodes of NSVT while in ED Acute pericarditis hs trop <3.5 pending echo Cardiology input appreciated Continue colchicine and indomethacin NSVT Related to acute pericarditis Continue metoprolol electrolytes with goal to keep K >4, mag >2 Keep on telemetry Hyperglycemia secondary to Type 2 DM hold metformin due to recent contrast study Continue SSI, POCs HTN Hold lisinopril until repeat K returns HLD Continue statin dvt ppx - lovenox
--- NOTE | 2020-11-30 15:44 | MHC.CM.PN ---
PT REPORTS SHE LIVES AT HOME WITH HER AND 20 YO DAUGHTER. PT WORKS HERE AT [employer], IS FULLY INDEPENDENT, HAS NO DME AND NO IN HOME SERVICES. PT DOES NOT HAVE A HCP BUT DID AGREE TO TAKE SOME INFORMATION AND A BLANK DOCUMENT TO CONSIDER. PT CONFIRMS HER PCP IS IMANI LU. PTS CURRENT DC PLAN IS HOME WITH NO SERVICES PT WILL SELF ARRANGE TRANSPORTATION
[2020-11-30 15:59] LABS: Glucose, Whole Blood 269 mg/dL (60-115)
[2020-11-30 20:12] LABS: Glucose, Whole Blood 199 mg/dL (60-115)
[2020-12-01 04:00] VITALS: BP 139/66; RESP 18; TEMP 36.8; O2SAT 97
[2020-12-01] MEDS: Omeprazole 40 MG CAPSULE.DR PO (06:18)
[2020-12-01 07:04] LABS: Anion Gap 12 (12-20); Blood Urea Nitrogen 23 mg/dL (9-16); Calcium 9.1 mg/dL (8.4-10.2); Carbon Dioxide 27 mmol/L (22-29); Chloride 103 mmol/L (96-108); Creatinine Clr Calc Pharmacy 76.5; Estimated Glomerular Filt Rate > 60; Glucose Random 192 mg/dL (60-115); Potassium 5.4 mmol/L (3.3-5.1); Sodium 137 mmol/L (135-145)
[2020-12-01 07:50] VITALS: BP 134/76; PULSE 64; RESP 18; TEMP 37; O2SAT 98
[2020-12-01 07:52] LABS: Glucose, Whole Blood 194 mg/dL (60-115)
[2020-12-01] MEDS: Insulin Lispro 100 UNIT/ML 3 ML VIAL SUBCUT ×2 (07:57→12:25)
[2020-12-01] MEDS: Atorvastatin Calcium 10 MG TABLET PO (07:58)
[2020-12-01 08:01] VITALS: BP 134/76; PULSE 64
[2020-12-01] MEDS: Metoprolol Tartrate 25 MG TABLET PO (08:01)
[2020-12-01] MEDS: Indomethacin 25 MG CAPSULE 75 MG PO (08:01)
[2020-12-01] MEDS: Colchicine 0.6 MG TABLET PO (08:01)
[2020-12-01] MEDS: 0.9 % Sodium Chloride Flush 3 ML SYRINGE IVFLUSH (08:03)
[2020-12-01] MEDS: Sodium Polystyrene Sulfon/Sorb 15 GM/60 ML ORAL.SUSP PO (10:50)
--- NOTE | 2020-12-01 11:14 | PM.PNCARD ---
Subjective Subjective Date of Service: 12/02/20 Principal diagnosis: pericarditis Interval history: Feeling better. CP resolved. Had run of Afib with RVR overnight ~ 7 minutes. Review of Systems Review of Systems no CP Yes all other systems are reviewed and are negative Physical Exam Vital Signs: Last Vital Signs Temp 98.6 F 12/01/20 07:50 Pulse 64 12/01/20 08:01 Resp 18 12/01/20 07:50 BP 134/76 12/01/20 08:01 Pulse Ox 98 12/01/20 07:50 Body Mass Index 21.2 GENERAL APPEARANCE: in no acute distress, well developed, well nourished. HEENT: unremarkable. HEAD: normocephalic, atraumatic. NECK/THYROID: no carotid bruit, no jugular venous distention. SKIN: no suspicious lesions, warm and dry. HEART: no murmurs, regular rate and rhythm, S1, S2 normal. LUNGS: clear to auscultation bilaterally. ABDOMEN: normal, bowel sounds present, soft, nontender, nondistended. EXTREMITIES: no clubbing, cyanosis, or edema. PERIPHERAL PULSES: equal. NEUROLOGIC: nonfocal, alert and oriented. PSYCH: mood/affect full range. Results Labs and Meds Result diagrams: 11/30/20 05:38 12/01/20 05:50 Lab results: Laboratory Results - last 24 hr 11/30/20 11/30/20 12/01/20 15:48 19:56 05:50 Sodium 137 Potassium 5.4 H Chloride 103 Carbon Dioxide 27 Anion Gap 12 BUN 23 H Creatinine 0.81 Estim Creat Clear Calc 76.5 Estimated GFR > 60 POC Glucose 269 H 199 H Random Glucose 192 H Calcium 9.1 12/01/20 07:41 Sodium Potassium Chloride Carbon Dioxide Anion Gap BUN Creatinine Estim Creat Clear Calc Estimated GFR POC Glucose 194 H Random Glucose Calcium Progress Note: A&P Assessment and plan (1) Acute pericarditis: Status: Acute (2) New onset atrial fibrillation: Status: Acute Assessment and Plan: 55-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 She had runs of Afib which were self limiting. Started on colchicine with good response. Stop Indomethacin and continue colchicine long term. She has stroke risk and had PAF but it was in the setting of pericarditis. Also with active inflammation I think we should wait before starting anticoagulation. Would do YONATAN to assess Afib burden and decide about anticoagulation as outpatient. Fall Risk Details Current Medications: Current Medications Generic Name Dose Route Start Last Admin Trade Name Freq PRN Reason Stop Dose Admin Acetaminophen 650 mg 11/29/20 21:22 11/30/20 23:03 Acetaminophen 325 Mg Tablet PO 650 mg Q6H PRN Administration Pain, Mild (Pain Scale 1-3) Atorvastatin Calcium 10 mg 11/30/20 09:00 12/01/20 07:58 Atorvastatin Calcium 10 Mg Tablet PO 10 mg DAILY MAGAN Administration Colchicine 0.6 mg 11/30/20 09:00 12/01/20 08:01 Colchicine 0.6 Mg Tablet PO 0.6 mg BID MAGAN Administration Docusate Sodium 100 mg 11/29/20 21:22 Docusate Sodium 100 Mg Capsule PO DAILY PRN Constipation Enoxaparin Sodium 40 mg 11/29/20 22:00 11/30/20 21:08 Enoxaparin Sodium 40 Mg/0.4 Ml Syringe SUBCUT Not Given Q24H [facility] Indomethacin 75 mg 11/30/20 09:00 12/01/20 08:01 Indomethacin 25 Mg Capsule PO 75 mg DAILY [facility] Administration Insulin Human Lispro 0 unit 11/29/20 21:00 12/01/20 07:57 Insulin Lispro 100 Unit/Ml 3 Ml Vial SUBCUT 2 unit QIDACHS [facility] Administration Protocol Metoprolol Tartrate 25 mg 11/30/20 09:00 12/01/20 08:01 Metoprolol Tartrate 25 Mg Tablet PO 25 mg BID MAGAN Administration Protocol Morphine Sulfate 2 mg 11/29/20 21:22 Morphine Sulfate 2 Mg/Ml Cartridge IVPUSH Q4H PRN Pain, Severe (Pain Scale 7-10) Omeprazole 40 mg 11/30/20 06:30 12/01/20 06:18 Omeprazole 40 Mg Capsule.Dr PO 40 mg DAILY@0630 MAGAN Administration Ondansetron HCl 4 mg 11/29/20 21:22 11/29/20 21:37 Ondansetron Hcl 4 Mg/2 Ml Vial IVPUSH 4 mg Q8H PRN Administration Nausea and Vomiting Pharmacy Consult 1 each 11/29/20 17:19 Consult Rx Perform Med Rec MISCELLANE ONCE PRN Consult order Sodium Chloride 3 ml 11/30/20 00:00 12/01/20 08:03 0.9 % Sodium Chloride Flush 3 Ml Syringe IVFLUSH 3 ml QSHIFT MAGAN Administration Time Spent With Patient Time: Total time spent is greater than 50% in coordination of care (as documented) at patient's floor/unit and/or counseling patient: Time with patient: less than 15 minutes
--- NOTE | 2020-12-01 11:15 | MHC.CM.PN ---
Per ROUNDS discussion, Patient will be medically cleared for dc to home today, no services.
[2020-12-01 11:19] VITALS: BP 128/69; PULSE 58; RESP 18; TEMP 36.6; O2SAT 96
--- NOTE | 2020-12-01 11:21 | PM.DS ---
DS: Providers Provider Date of Service: 12/01/20 Date of admission: 11/29/20 17:45 Primary care physician: Aristeo Cabezas MD Consults: 11/29/20 21:22 Consult to Cardiology Routine Consulting Provider: Esau Campbell Reason for consultation: pericarditis Has provider been notified: No DS: Diagnosis Discharge Diagnosis (1) Acute pericarditis: Status: Acute (2) Atrial arrhythmia: Status: Acute (3) NSVT (nonsustained ventricular tachycardia): Status: Acute (4) New onset atrial fibrillation: Status: Acute DS: Medications Discharge Medications Home Medications: Home Medications Medication Instructions Recorded Confirmed atorvastatin 1 tab PO DAILY 11/29/20 11/29/20 lisinopril 1 tab PO DAILY 11/29/20 11/29/20 metformin 1 tab PO BID 11/29/20 11/29/20 omeprazole 1 cap PO DAILY 11/29/20 11/29/20 Previous Rx's Medication Instructions Recorded colchicine [Colcrys] 0.6 mg PO BID #180 tab 12/01/20 indomethacin 75 mg PO DAILY PRN 90 Days #90 cap 12/01/20 metoprolol tartrate 25 mg PO BID #60 tab 12/01/20 DS: Summary Hospital Course Hospital Course: Admission note HPI This is a 55-year-old female with a history of recurrent pericarditis who presents to the emergency department with chest pain. Patient has had multiple episodes of pericarditis in the past. She had been taking colchicine but this was discontinued last spring. She has been taking indomethacin. On Friday she began having intermittent chest pain on the left side of her chest which was worse with lying down. She has also had associated shortness of breath. Her pain felt similar to previous episodes of pericarditis. She denied any palpitations until she was in the emergency department today in the emergency department she was noted to have multiple runs of nonsustained V-tach, what appeared to be atrial flutter. Due to elevated D-dimer, she underwent CTA which was negative for PE or dissection. Lab work was otherwise unremarkable. She was evaluated by the railroad dining car steward/stewardess in the emergency department and underwent bedside echocardiogram. The results of the echo are pending at this time. Cardiology recommended starting oral metoprolol as well as colchicine. Hospital course The patient was admitted for treatment of acute pericarditis. Evaluated by Cardiology as an echo was done showing normal ejection fraction with no fluid collection. She was treated with pain medications and colchicine with good response over the hospital stay course. Plan to be discharged home on colchicine 0.6 mg twice daily for the next 3 months. She was noted to atrial arrhythmias, NSVDs, new onset atrial fibrillation on telemetry that was on an of and likely related to acute pericarditis according to cardiology team. She was started on metoprolol 25 mg twice daily with fair response with a plan to follow up with Cardiology as outpatient for cardiac monitoring device placement. Time Spent with Patient Time attestation: Total time spent providing and/or coordinating discharge services: Discharge coordination time: Greater than 30 minutes Physical Exam Vital Signs: Vital Signs: Last Vital Signs Temp 97.9 F 12/01/20 11:19 Pulse 58 12/01/20 11:19 Resp 18 12/01/20 11:19 BP 128/69 12/01/20 11:19 Pulse Ox 96 12/01/20 11:19 Body Mass Index 21.2 Const: Other: Constitutional : Alert, oriented, not in distress Neck : Normal inspection, Supple Cardiovascular : RRR, S1 S2, no lower extremity edema Respiratory : Good bilateral air entry, no crackles, wheezes or rhonchi Gastrointestinal: soft, lax, Normal bowel sounds, Non tender Skin : Warm/Dry, No rash Neurological : Alert & oriented x3, No focal deficit DS: Data Data Completed and Pending Labs on day of discharge: Laboratory Results - last 24 hr 11/30/20 11/30/20 12/01/20 15:48 19:56 05:50 Sodium 137 Potassium 5.4 H Chloride 103 Carbon Dioxide 27 Anion Gap 12 BUN 23 H Creatinine 0.81 Estim Creat Clear Calc 76.5 Estimated GFR > 60 POC Glucose 269 H 199 H Random Glucose 192 H Calcium 9.1 12/01/20 07:41 Sodium Potassium Chloride Carbon Dioxide Anion Gap BUN Creatinine Estim Creat Clear Calc Estimated GFR POC Glucose 194 H Random Glucose Calcium Discharge Plan Discharge Patient Disposition: Home, Self-Care Referrals: Aristeo Cabezas MD [Primary Care Provider] - Discharge Medications: New colchicine [Colcrys] 0.6 mg Tablet 0.6 mg PO BID Qty: 180 RF: 0 metoprolol tartrate 25 mg Tablet 25 mg PO BID Qty: 60 RF: 0 Continued metformin 500 mg tablet 1 tab PO BID RF: 0 atorvastatin 10 mg tablet 1 tab PO DAILY RF: 0 omeprazole 40 mg capsule,delayed release(DR/EC) 1 cap PO DAILY RF: 0 lisinopril 5 mg tablet 1 tab PO DAILY RF: 0 Changed indomethacin 75 mg capsule, extended release 75 mg PO DAILY PRN (Reason: pain, moderate) 90 Days Qty: 90 RF: 1 Discharge Orders: Discharge Order (Routine); Ordered 12/01/20 Ordered By: Casey Nelson Diet: advance to usual diet Activity on Discharge: As tolerated Stand Alone Forms: Patient Portal Discharge page Care Plan Goals: Read below Health Concerns: Read below Plan of Treatment: You were admitted to the hospital for evaluation of chest pain. Your workup was consistent with recurrent acute pericarditis. You were noticed to irregular heart rhythm the heart monitor as a result of the pericarditis. You were evaluated by Cardiology team and treated with pain medications and colchicine. Your symptoms improved during the hospital stay but continue to episodes of arrhythmias. Continue colchicine 0.6 mg twice daily for the next 3 months Start metoprolol 25 mg twice daily for the arrhythmia To follow up with Cardiology office as outpatient for heart monitoring device Continue to use indomethacin as needed for pain
[2020-12-01 11:32] LABS: Glucose, Whole Blood 211 mg/dL (60-115)
[2020-12-01 17:56] LABS: CRP High Sensitivity >10.0 mg/L
== END 2020-12-01 13:22 | disposition home or self-care (01) | DRG 207 ==
LOC: HO.ED 17:22 → HO.EDOVER 18:08 → HO.IMC 18:59
PROVIDERS: Internal Medicine Cardiovascular Disease; Physician Assistant Medical; Admitting Provider Student in an Organized Health Care Education/Training Program; Emergency Provider Emergency Medicine Emergency Medical Services; PCP Internal Medicine; Visit Provider Student in an Organized Health Care Education/Training Program
DX: I30.9 Acute pericarditis, unspecified (principal); E11.65 Type 2 diabetes mellitus with hyperglycemia; I10 Essential (primary) hypertension; I47.1 Supraventricular tachycardia; I48.91 Unspecified atrial fibrillation; E78.5 Hyperlipidemia, unspecified; Z20.822 Contact with and (suspected) exposure to COVID-19; Z79.84 Long term (current) use of oral hypoglycemic drugs; Z79.899 Other long term (current) drug therapy
CPT/HCPCS: 36415; 71046; 71275; 80048; 80053; 82947; 83735; 84132; 84436; 84443; 84484; 85025; 85379; 86141; 87635; 93005; 93308; 96374; 96375; 99285; J1170; J2405; J3475; Q9957; Q9967

== ENCOUNTER 2020-12-14 10:42 | Outpatient (REF) | payer OTHER, SELFPAY ==
--- NOTE | ~2020-12-14 | MM_ITS ---
EXAMINATION: MM SCREENING DIGITAL BREAST TOMOSYNTHESIS, BILATERAL CLINICAL INFORMATION: Screening. Asymptomatic. The lifetime risk of breast cancer based on the Tyrer-Cuzick Model is 9.2%. COMPARISON: Mammography: September 09, 2019 and studies dating back to August 26, 2006 TECHNIQUE: Digital breast tomosynthesis is performed in both the craniocaudal and mediolateral oblique views along with computer-aided detection (CAD). Synthesized 2D images are generated from the tomosynthesis. FINDINGS: There are scattered areas of fibroglandular density (ACR BI-RADS breast composition Category b). There are no significant masses, abnormal calcifications, or other abnormalities. MM/MM tomosynthesis screening BI IMPRESSION: There are no significant changes from prior study. ASSESSMENT: BI-RADS 1: Negative RECOMMENDATION: Routine annual mammography screening. This patient's information was entered into a reminder system with a target due date for their next mammogram.
== END 2020-12-14 10:43 | disposition home or self-care (01) ==
LOC: HO.MAMMO 10:42
PROVIDERS: PCP Internal Medicine; Visit Provider Internal Medicine
DX: Z12.31 Encounter for screening mammogram for malignant neoplasm of breast (principal)
CPT/HCPCS: 77063; 77067

== ENCOUNTER → 2021-01-02 14:00 | Outpatient (REF) | payer OTHER, SELFPAY ==
--- NOTE | 2021-01-02 14:04 | HM_ITS ---
REQUESTING PROVIDER: Dr. Campbell. INDICATION FOR TEST: Atrial flutter. TECHNIQUE: The patient was hooked up to cardiac event monitor from 01/02/2021 to 02/01/2021 for a total period of 30 days. The patient was monitored during this time. FINDINGS: Baseline rhythm was normal sinus rhythm. There were no arrhythmias noted. The patient reported no events. CONCLUSION: Event monitor is unremarkable for any significant arrhythmias. The patient has symptoms with baseline normal sinus rhythm. Ryan Marley MD NRS/MODL / [id number]
== END ==
LOC: HO.CARD 14:00
PROVIDERS: Visit Provider Internal Medicine Cardiovascular Disease
DX: I48.92 Unspecified atrial flutter (principal)
CPT/HCPCS: 93270; 93272

== ENCOUNTER → 2021-02-13 14:53 | Outpatient (BNVA) | payer OTHER, SELFPAY | PROVIDERS: PCP Internal Medicine; Visit Provider Internal Medicine ==

== ENCOUNTER 2021-03-03 07:12 | Outpatient (REF) | payer OTHER, SELFPAY ==
[2021-03-03 08:26] LABS: MANUAL DIFF FLAG NO
[2021-03-03 08:31] LABS: Basophils Percent Auto 0.4 % (0-2); Eosinophils Absolute Auto 0.2 X10*3/uL (0.0-0.4); Eosinophils Percent Auto 2.4 % (0-4); Hematocrit 40.9 % (37-47); Hemoglobin 13.8 g/dl (12.0-16.0); Imm Gran Abs Auto 0.02 X10*3/uL (0.00-0.03); Imm Gran Pct Auto 0.3 % (0.0-0.4); Lymphocytes Absolute Auto 3.9 X10*3/uL (1.2-4.9); Lymphocytes Percent Auto 49.2 % (20-40); Mean Corpuscular HGB Conc 33.7 g/dl (31.0-35.0); Mean Corpuscular Hemoglobin 31.2 pg (27.0-33.0); Mean Corpuscular Volume 92.3 fL (80-98); Mean Platelet Volume 11.5 fL (9.4-12.3); Monocytes Absolute Auto 0.7 X10*3/uL (0.1-1.2); Monocytes Percent Auto 9.5 % (2-11); Neutrophils Percent Auto 38.2 % (45-73); Platelet Count 244 X10*3/uL (160-400); Red Blood Count 4.43 X10*6/uL (4.20-5.50); Red Cell Distribution Width 12.5 % (11.0-16.0); White Blood Count 7.8 X10*3/uL (4.8-10.8)
[2021-03-03 08:40] LABS: Estimated Average Glucose 186 mg/dL; Hemoglobin A1c % 8.1 %
[2021-03-03 08:49] LABS: Alanine Aminotransferase 47 U/L (0-31); Albumin Level 4.7 g/dL (3.5-5.0); Alkaline Phosphatase 63 U/L (39-117); Anion Gap 14 (12-20); Aspartate Amino Transferase 29 U/L (5-31); Bilirubin Total 0.5 mg/dL (0.0-1.0); Blood Urea Nitrogen 21 mg/dL (9-16); Calcium 9.9 mg/dL (8.4-10.2); Carbon Dioxide 26 mmol/L (22-29); Chloride 106 mmol/L (96-108); Cholesterol 168 mg/dL; Estimated Glomerular Filt Rate 58; Glucose Fasting 141 mg/dL (60-99); HDL Cholesterol 45 mg/dL; LDL Cholesterol Calculated 99 mg/dl; Potassium 4.3 mmol/L (3.3-5.1); Sodium 142 mmol/L (135-145); Total Protein 7.2 g/dL (6.5-8.0); Triglycerides 122 mg/dL
[2021-03-03 08:50] LABS: Creatinine Urine 321.09 mg/dL; Microalbum/Creatinine Ratio Ur 11.2 ug/mg cr
== END 2021-03-03 07:13 | disposition home or self-care (01) ==
LOC: HO.LAB 07:12
PROVIDERS: PCP Internal Medicine; Visit Provider Internal Medicine
DX: E11.9 Type 2 diabetes mellitus without complications (principal); E78.00 Pure hypercholesterolemia, unspecified; I10 Essential (primary) hypertension; K21.9 Gastro-esophageal reflux disease without esophagitis
CPT/HCPCS: 36415; 80053; 80061; 82043; 83036; 85025

== ENCOUNTER 2021-04-26 10:00 | Outpatient (REF) | payer OTHER, SELFPAY ==
[2021-04-26 11:23] LABS: Alanine Aminotransferase 52 U/L (0-31); Albumin Level 4.4 g/dL (3.5-5.0); Alkaline Phosphatase 65 U/L (39-117); Anion Gap 13 (12-20); Aspartate Amino Transferase 28 U/L (5-31); Bilirubin Total 0.4 mg/dL (0.0-1.0); Blood Urea Nitrogen 12 mg/dL (9-16); C Reactive Protein 0.32 mg/dL (< or = 0.50); Calcium 10.1 mg/dL (8.4-10.2); Carbon Dioxide 25 mmol/L (22-29); Chloride 105 mmol/L (96-108); Estimated Glomerular Filt Rate 59; Glucose Random 210 mg/dL (60-115); Potassium 5.1 mmol/L (3.3-5.1); Sodium 138 mmol/L (135-145)
== END 2021-04-26 10:01 | disposition home or self-care (01) ==
LOC: HO.LAB 10:00
PROVIDERS: PCP Internal Medicine; Visit Provider Internal Medicine
DX: I31.9 Disease of pericardium, unspecified (principal); E11.9 Type 2 diabetes mellitus without complications
CPT/HCPCS: 36415; 80053; 86140

== ENCOUNTER → 2021-08-20 14:53 | Outpatient (BNVA) | payer OTHER, SELFPAY | PROVIDERS: PCP Internal Medicine; Referring Provider Internal Medicine; Visit Provider Internal Medicine ==

== ENCOUNTER 2021-12-08 03:46 | Outpatient (REF) | payer OTHER, SELFPAY ==
[2021-12-08 04:11] LABS: MANUAL DIFF FLAG NO
[2021-12-08 04:20] LABS: Basophils Percent Auto 0.5 % (0-2); Eosinophils Absolute Auto 0.2 X10*3/uL (0.0-0.4); Eosinophils Percent Auto 2.9 % (0-4); Hematocrit 38.9 % (37.0-47.0); Hemoglobin 12.9 g/dl (12.0-16.0); Imm Gran Abs Auto 0.02 X10*3/uL (0.00-0.03); Imm Gran Pct Auto 0.3 % (0.0-0.4); Lymphocytes Absolute Auto 3.9 X10*3/uL (1.2-4.9); Mean Corpuscular HGB Conc 33.2 g/dl (31.0-35.0); Mean Corpuscular Hemoglobin 31.4 pg (27.0-33.0); Mean Corpuscular Volume 94.6 fL (80.0-98.0); Mean Platelet Volume 10.8 fL (9.4-12.3); Monocytes Absolute Auto 0.6 X10*3/uL (0.1-1.2); Monocytes Percent Auto 8.1 % (2-11); Neutrophils Absolute Auto 3.1 x10*3/uL (2.0-8.3); Neutrophils Percent Auto 39.2 % (45-73); Platelet Count 254 X10*3/uL (160-400); Red Blood Count 4.11 X10*6/uL (4.20-5.50); Red Cell Distribution Width 12.3 % (11.0-16.0); White Blood Count 7.9 X10*3/uL (4.8-10.8)
[2021-12-08 04:25] LABS: Estimated Average Glucose 212 mg/dL
[2021-12-08 04:31] LABS: Creatinine Urine 172.91 mg/dL
[2021-12-08 04:37] LABS: Alanine Aminotransferase 47 U/L (0-31); Albumin Level 4.3 g/dL (3.5-5.0); Alkaline Phosphatase 70 U/L (39-117); Anion Gap 15 (12-20); Aspartate Amino Transferase 30 U/L (5-31); Bilirubin Total 0.5 mg/dL (0.0-1.0); Blood Urea Nitrogen 15 mg/dL (9-16); Calcium 10.5 mg/dL (8.4-10.2); Carbon Dioxide 25 mmol/L (22-29); Chloride 100 mmol/L (96-108); Estimated Glomerular Filt Rate 57; Glucose Random 245 mg/dL (60-115); Potassium 3.8 mmol/L (3.3-5.1); Sodium 136 mmol/L (135-145); Total Protein 6.8 g/dL (6.5-8.0)
== END 2021-12-08 03:47 | disposition home or self-care (01) ==
LOC: HO.LAB 03:46
PROVIDERS: Visit Provider Internal Medicine
DX: E11.9 Type 2 diabetes mellitus without complications (principal); R79.89 Other specified abnormal findings of blood chemistry; K05.30 Chronic periodontitis, unspecified
CPT/HCPCS: 36415; 80053; 82043; 83036; 85025

== ENCOUNTER 2021-12-19 12:38 | Outpatient (REF) | payer OTHER, SELFPAY ==
--- NOTE | ~2021-12-19 | MM_ITS ---
EXAMINATION: MM SCREENING DIGITAL BREAST TOMOSYNTHESIS, BILATERAL CLINICAL INFORMATION: Screening. Asymptomatic. The lifetime risk of breast cancer based on the Tyrer-Cuzick Model is 8%. COMPARISON: Mammography: 12/14/2020, 09/09/2019, 04/29/2018, 04/21/2018 TECHNIQUE: Digital breast tomosynthesis is performed in both the craniocaudal and mediolateral oblique views along with computer-aided detection (CAD). Synthesized 2D images are generated from the tomosynthesis. FINDINGS: There are scattered areas of fibroglandular density (ACR BI-RADS breast composition Category b). Parenchymal pattern is similar to prior studies. There is no mass or architectural abnormality or developing density. No abnormal calcifications. The axilla and skin contours are unremarkable. No significant changes. MM/MM tomosynthesis screening BI IMPRESSION: No mammographic evidence of malignancy. ASSESSMENT: BI-RADS 1: Negative RECOMMENDATION: Routine annual mammography screening. This patient's information was entered into a reminder system with a target due date for their next mammogram.
== END 2021-12-19 12:39 | disposition home or self-care (01) ==
LOC: HO.MAMMO 12:38
PROVIDERS: Visit Provider Internal Medicine
DX: Z12.31 Encounter for screening mammogram for malignant neoplasm of breast (principal)
CPT/HCPCS: 77063; 77067

== ENCOUNTER 2022-01-30 15:52 | Outpatient (REF) | payer OTHER, SELFPAY ==
--- NOTE | ~2022-01-30 | US_ITS ---
EXAMINATION: US RETROPERITONEAL LIMITED (RENAL ONLY) CLINICAL INFORMATION: Cyst and calculus of the left ureter. COMPARISON: Renal ultrasound 05/02/2020, renal ultrasound 05/03/2019, CT abdomen and pelvis 11/08/2016. TECHNIQUE: Real-time imaging of the kidneys. FINDINGS: RIGHT KIDNEY: 10.9 x 3.2 x 5.1 cm (SAG x AP x TRV). The kidney is normal in size, contour, and echogenicity. Renal cortical thickness is normal. No calculi or focal parenchymal lesions. No hydronephrosis. There is hypertrophied column of Bertini. LEFT KIDNEY: 11.1 x 4.1 x 4.6 cm (SAG x AP x TRV). The kidney is normal in size, contour, and echogenicity. Renal cortical thickness is normal. No hydronephrosis. There is anechoic cyst in the upper pole measuring 0.8 x 0.7 x 0.7 cm. There are multiple upper pole calcifications. There is an echogenic calculi in the upper pole measuring 0.4 x 0.6 x 0.3 cm. No caliectasis seen. US/US renal BI IMPRESSION: Multiple left renal upper pole calcifications vascular versus stone. There is an echogenic stone upper pole measuring 0.6 cm. Anechoic cyst upper pole left kidney. Prominent column of Ellis in right kidney but no echogenic calculi or hydronephrosis.
== END 2022-01-30 15:53 | disposition home or self-care (01) ==
LOC: HO.US 15:52
PROVIDERS: Visit Provider Internal Medicine
DX: N20.2 Calculus of kidney with calculus of ureter (principal); N28.1 Cyst of kidney, acquired
CPT/HCPCS: 76775

== ENCOUNTER → 2022-02-12 13:53 | Outpatient (BNVA) | payer OTHER, SELFPAY | PROVIDERS: PCP Internal Medicine; Referring Provider Internal Medicine; Visit Provider Internal Medicine | DX: I31.9 Disease of pericardium, unspecified (principal); I48.0 Paroxysmal atrial fibrillation; I47.2 Ventricular tachycardia; I10 Essential (primary) hypertension; E11.8 Type 2 diabetes mellitus with unspecified complications | CPT/HCPCS: 93005 ==

== ENCOUNTER 2022-03-30 07:18 | Outpatient (REF) | payer OTHER, SELFPAY ==
[2022-03-30 07:58] LABS: Estimated Average Glucose 183 mg/dL
[2022-03-30 08:12] LABS: Anion Gap 13 (12-20); Blood Urea Nitrogen 14 mg/dL (9-16); Calcium 10.3 mg/dL (8.4-10.2); Carbon Dioxide 27 mmol/L (22-29); Chloride 101 mmol/L (96-108); Estimated Glomerular Filt Rate > 60; Glucose Fasting 130 mg/dL (60-99); Potassium 4.1 mmol/L (3.3-5.1); Sodium 137 mmol/L (135-145)
[2022-04-06 00:02] LABS: Parathyroid Hormone Related Pr 12 pg/mL (11-20)
== END 2022-03-30 07:19 | disposition home or self-care (01) ==
LOC: HO.LAB 07:18
PROVIDERS: PCP Internal Medicine; Visit Provider Internal Medicine
DX: I12.9 Hypertensive chronic kidney disease with stage 1 through stage 4 chronic kidney disease, or unspecified chronic kidney disease (principal); N18.9 Chronic kidney disease, unspecified; E11.22 Type 2 diabetes mellitus with diabetic chronic kidney disease; K21.9 Gastro-esophageal reflux disease without esophagitis; E78.00 Pure hypercholesterolemia, unspecified
CPT/HCPCS: 36415; 80048; 83036; 83519

== ENCOUNTER → 2022-07-08 09:57 | Outpatient (RCR) | payer OTHER, SELFPAY ==
[2020-07-31 06:22] LABS: COVID-19 Test Negative (Negative)
[2020-08-07 08:18] LABS: COVID-19 Test Negative (Negative)
[2020-08-15 09:19] LABS: COVID-19 Test Negative (Negative)
[2020-08-22 07:29] LABS: COVID-19 Test Negative (Negative)
[2020-08-29 07:42] LABS: COVID-19 Test Negative (Negative)
[2020-09-05 10:18] LABS: COVID-19 Test Negative (Negative)
== END | disposition home or self-care (01) ==
LOC: HO.EMPCOV 07-31 05:59
PROVIDERS: Visit Provider Internal Medicine
DX: Z20.828 Contact with and (suspected) exposure to other viral communicable diseases (principal)
CPT/HCPCS: 87635; C9803

== ENCOUNTER 2022-07-09 12:00 | Outpatient (REF) | payer OTHER, SELFPAY ==
--- NOTE | ~2022-07-09 | XR_ITS ---
EXAMINATION: XR HIP, RIGHT CLINICAL INFORMATION: Right hip pain COMPARISON: 06/01/2018 TECHNIQUE: Two views of the right hip. FINDINGS: No fracture or dislocation seen. Again seen is superior joint space narrowing with acetabular sclerosis and subchondral cyst formation similar to the prior study. Femoral collar osteophytes are present. XR/XR hip RT min 2V IMPRESSION: No acute osseous abnormality. Similar appearance of mild to moderate osteoarthritis of the right hip.
== END 2022-07-09 12:01 | disposition home or self-care (01) ==
LOC: HO.XRAY 12:00
PROVIDERS: PCP Internal Medicine; Visit Provider Internal Medicine
DX: M25.551 Pain in right hip (principal)
CPT/HCPCS: 73502

== ENCOUNTER 2022-12-04 07:11 | Outpatient (REF) | payer OTHER, SELFPAY ==
[2022-12-04 07:21] LABS: MANUAL DIFF FLAG NO
[2022-12-04 07:40] LABS: Basophils Absolute Auto 0.1 X10*3/uL (0.0-0.2); Basophils Percent Auto 0.8 % (0-2); Eosinophils Absolute Auto 0.3 X10*3/uL (0.0-0.4); Eosinophils Percent Auto 3.5 % (0-4); Hematocrit 39.9 % (37.0-47.0); Hemoglobin 13.4 g/dl (12.0-16.0); Imm Gran Abs Auto 0.04 X10*3/uL (0.00-0.03); Imm Gran Pct Auto 0.5 % (0.0-0.4); Lymphocytes Absolute Auto 3.9 X10*3/uL (1.2-4.9); Lymphocytes Percent Auto 51.5 % (20-40); Mean Corpuscular HGB Conc 33.6 g/dl (31.0-35.0); Mean Corpuscular Volume 92.4 fL (80.0-98.0); Mean Platelet Volume 10.5 fL (9.4-12.3); Monocytes Absolute Auto 0.5 X10*3/uL (0.1-1.2); Monocytes Percent Auto 7.1 % (2-11); Neutrophils Absolute Auto 2.7 x10*3/uL (2.0-8.3); Neutrophils Percent Auto 36.6 % (45-73); Platelet Count 245 X10*3/uL (160-400); Red Blood Count 4.32 X10*6/uL (4.20-5.50); Red Cell Distribution Width 12.3 % (11.0-16.0); White Blood Count 7.5 X10*3/uL (4.8-10.8)
[2022-12-04 08:18] LABS: Estimated Average Glucose 217 mg/dL; Hemoglobin A1c % 9.2 %
[2022-12-04 08:32] LABS: Appearance Urine Clear; Color Urine Yellow; Glucose Urine UA Negative (Negative); Leukocyte Esterase Urine Small (1+) (Negative); Nitrite Urine Negative (Negative); PH 5.5 (5.0-9.0); Specific Gravity - Urine 1.015 (1.005-1.025); UMIC TRIGGER UA YES; Urine Blood Negative (Negative); Urine Ketones Negative (Negative); Urine Protein Negative (Neg-Trace)
[2022-12-04 08:38] LABS: Bacteria Urine None Seen (None Seen); Hyaline Casts Urine 0-2 /LPF (0-2); RBC Urine 0-2 /HPF (0-2); Squamous Epithelial Cell Urine 0-2 /HPF (0-2)
[2022-12-04 08:38] LABS: Alanine Aminotransferase 46 U/L (0-31); Albumin Level 4.6 g/dL (3.5-5.0); Alkaline Phosphatase 72 U/L (39-117); Anion Gap 13 (12-20); Aspartate Amino Transferase 31 U/L (5-31); Bilirubin Total 0.8 mg/dL (0.0-1.0); Blood Urea Nitrogen 15 mg/dL (9-16); Calcium 9.9 mg/dL (8.4-10.2); Carbon Dioxide 26 mmol/L (22-29); Chloride 104 mmol/L (96-108); Estimated Glomerular Filt Rate > 60; Glucose Fasting 168 mg/dL (60-99); Potassium 4.2 mmol/L (3.3-5.1); Sodium 139 mmol/L (135-145); Uric Acid 4.6 mg/dL (2.4-5.7)
[2022-12-04 08:53] LABS: Creatinine Urine 103.26 mg/dL; Microalbum/Creatinine Ratio Ur 8.7 ug/mg cr
[2022-12-04 08:54] LABS: Vitamin D 25-OH Total 28.5 ng/mL (>30)
== END 2022-12-04 07:12 | disposition home or self-care (01) ==
LOC: HO.LAB 07:11
PROVIDERS: PCP Internal Medicine; Visit Provider Internal Medicine
DX: Z00.00 Encounter for general adult medical examination without abnormal findings (principal); E11.9 Type 2 diabetes mellitus without complications
CPT/HCPCS: 36415; 80053; 81001; 82043; 82306; 83036; 84550; 85025

== ENCOUNTER 2023-01-09 07:20 | Outpatient (REF) | payer OTHER, SELFPAY ==
--- NOTE | ~2023-01-09 | MM_ITS ---
EXAMINATION: MM SCREENING DIGITAL BREAST TOMOSYNTHESIS, BILATERAL CLINICAL INFORMATION: Screening. Asymptomatic. The lifetime risk of breast cancer based on the Tyrer-Cuzick Model is 9%. COMPARISON: Mammography: December 19, 2021 and studies dating back to January 08, 2016 TECHNIQUE: Digital breast tomosynthesis is performed in both the craniocaudal and mediolateral oblique views along with computer-aided detection (CAD). Synthesized 2D images are generated from the tomosynthesis. FINDINGS: There are scattered areas of fibroglandular density (ACR BI-RADS breast composition Category b). There are no significant masses, abnormal calcifications, or other abnormalities. MM/MM tomosynthesis screening BI IMPRESSION: No significant changes from prior exam. ASSESSMENT: BI-RADS 1: Negative RECOMMENDATION: Routine annual mammography screening. This patient's information was entered into a reminder system with a target due date for their next mammogram.
== END 2023-01-09 07:21 | disposition home or self-care (01) ==
LOC: HO.MAMMO 07:20
PROVIDERS: Visit Provider Internal Medicine
DX: Z12.31 Encounter for screening mammogram for malignant neoplasm of breast (principal)
CPT/HCPCS: 77063; 77067

== ENCOUNTER 2023-05-20 07:11 | Outpatient (REF) | payer OTHER, SELFPAY ==
[2023-05-20 08:07] LABS: Estimated Average Glucose 200 mg/dL; Hemoglobin A1c % 8.6 % (<6.0)
[2023-05-20 08:25] LABS: Alanine Aminotransferase 30 U/L (0-31); Albumin Level 4.5 g/dL (3.5-5.0); Alkaline Phosphatase 65 U/L (39-117); Anion Gap 13 (12-20); Aspartate Amino Transferase 21 U/L (5-31); Bilirubin Total 0.3 mg/dL (0.0-1.0); Blood Urea Nitrogen 19 mg/dL (9-16); Carbon Dioxide 26 mmol/L (22-29); Chloride 103 mmol/L (96-108); Estimated Glomerular Filt Rate > 60; Glucose Random 143 mg/dL (60-115); Potassium 3.9 mmol/L (3.3-5.1); Sodium 138 mmol/L (135-145); Total Protein 7.3 g/dL (6.5-8.0)
== END 2023-05-20 07:12 | disposition home or self-care (01) ==
LOC: HO.LAB 07:11
PROVIDERS: PCP Internal Medicine; Visit Provider Internal Medicine
DX: I10 Essential (primary) hypertension (principal); E11.9 Type 2 diabetes mellitus without complications; K21.9 Gastro-esophageal reflux disease without esophagitis
CPT/HCPCS: 36415; 80053; 83036

== ENCOUNTER 2023-09-01 13:22 | Outpatient (AMB) | payer OTHER, SELFPAY ==
[2023-09-01 13:28] VITALS: BP 120/82; PULSE 56; BMI 24.6
--- NOTE | 2023-09-01 13:28 | MHC.OFFVIS ---
Intake Vital Signs 09/01/23 13:28 Height 5 ft Weight 126 lb 1.671 oz BMI 24.6 BP 120/82 Blood Pressure Location Lt brachial Position Sitting Pulse 56 Pulse Source Monitor Intake Visit Reasons: 1 year follow up Stenographer Secretary Required: No Allergies No Known Allergies [No Known Allergies*] Allergy (Verified 09/01/23 13:30) Medication List - Last Reconciled 09/01/23 by Chikis Burrell, TYLER-C atorvastatin 10 mg PO DAILY colchicine (Colcrys) 0.6 mg PO DAILY 90 days empagliflozin 25 mg PO DAILY indomethacin ER 75 mg PO DAILY PRN lisinopril 10 mg PO DAILY metformin 500 mg PO BID metoprolol tartrate 25 mg PO BID omeprazole 1 cap PO DAILY HPI 1 year follow up HPI Details Sydney is a 57-year-old female past medical history of hypertension, hyperlipidemia, diabetes, idiopathic pericarditis, pericardial effusion status post pericardial window, paroxysmal AFib, SVT who presents for follow-up. Today she reports that she has done well in the last year with no definite recurrent pericarditis. She has felt some minor discomfort on a few occasions and then took Indocin with relief. No hospitalizations or ER trips. No other chest discomfort, shortness of breath, palpitations, presyncope, syncope, PND, orthopnea or edema. No known recurrent atrial fibrillation since her initial episode. Takes all meds as directed. Continues on colchicine. [facility] Medical History PAF (paroxysmal atrial fibrillation) Chronic idiopathic pericarditis HTN (hypertension) Pericarditis HLD (hyperlipidemia) Diabetes Surgical History H/O: hysterectomy S/P pericardial window creation Family History Sister Pericarditis Social History Household Members: Family Housing: House Do you presently have visiting nurse or other home services: No Alcohol intake: never Comment: 'no pain' service: No Current occupational status: employed Review of Systems Const All systems reviewed & are unremarkable except as noted in HPI and below ENT Denies dizziness Card Denies chest pain, Denies chest pain at rest, Denies chest pain with activity, Denies rapid heart rate, Denies pedal edema, Denies edema, Denies leg edema, Denies lightheadedness, Denies palpitations, Denies dyspnea, Denies dyspnea on exertion and Denies orthopnea Resp Denies cough, Denies dyspnea and Denies dyspnea on exertion GI Denies hematochezia and Denies change in stool character Musc Denies abnormal gait, Denies limited range of motion, Denies muscle cramps, Denies muscle weakness, Denies numbness, Denies radiating pain into limb, Denies stiffness and Denies tingling Neuro Denies abnormal gait, Denies dizziness, Denies numbness and Denies tingling Endo Denies palpitations Physical Exam Vital Signs: Last Vital Signs Pulse 56 09/01/23 13:28 BP 120/82 09/01/23 13:28 BMI result Body Mass Index 24.6 Const General: cooperative, healthy appearing, comfortable and no acute distress Orientation/consciousness: patient oriented x3 Neck Neck: Yes normal visual inspection Resp Effort & Inspection: normal respiratory effort Auscultation: clear to auscultation bilaterally, no crackles, no rales, no rhonchi and no wheezes Cardio Jugular venous distension: no JVD Rate: regular rate Rhythm: regular rhythm Heart sounds: S1 normal heart sound present, S2 normal heart sound present, no murmurs and no rubs Neuro General: patient oriented x3 Extrem General: Yes normal to inspection and No no pedal edema Psych Appearance: grossly normal Mental Status: mental status grossly normal Speech and movement: Normal speech and movement present Office Procedures EKG Details: Today, read by me, sinus bradycardia, heart rate 56, early repolarization, no acute ST or T-wave abnormalities, QTC 414 millisecond [id number], Complete Assessment & Plan Assessment & Plan (1) Chronic idiopathic pericarditis: Code(s): I31.9 - Disease of pericardium, unspecified Qualifiers: Chronic pericarditis complication: unspecified complication status Qualified Code(s): I31.9 - Disease of pericardium, unspecified Plan: History of having pericarditis which was recurrent on 3-4 occasions. She also had pericardial effusion requiring pericardial window. She is now on colchicine 0.6 mg daily. She uses Indocin p.r.n. for chest discomfort or concerns of pericarditis. She has done very well over the last year with no hospitalizations or ER trips. Will have her continue on current med management. Labs done 05/20/2023 shows creatinine 0.87. Recommend recheck at least twice yearly. Cardiology follow-up in 1 year, sooner if needed. (2) S/P pericardial window creation: Code(s): Z98.890 - Other specified postprocedural states Plan: History of pericardial window due to pericardial effusion. Last echocardiogram done 11/29/2020 showing EF 55-60%, normal RV, no pericardial effusion. (3) PAF (paroxysmal atrial fibrillation): Code(s): I48.0 - Paroxysmal atrial fibrillation Plan: Episode of paroxysmal atrial fibrillation also SVT during 1 of her hospital admissions. She has not had any known recurrent AFib. She denies having any heart palpitations. Pulse is regular on examination today. EKG today shows sinus bradycardia, early repolarization, rate 56. Continue on metoprolol tartrate 25 mg b.i.d. No indication for anticoagulation at this time. Emergency care if ever needed for symptoms. (4) Essential hypertension: Code(s): I10 - Essential (primary) hypertension Plan: Well controlled at this time. No medication changes made. Coding Level of Care Code Est Pt Level 3 (33605) Diagnoses Chronic idiopathic pericarditis, unspecified complication status I31.9 Chronic pericarditis complication: unspecified complication status S/P pericardial window creation Z98.890 PAF (paroxysmal atrial fibrillation) I48.0 Essential hypertension I10 CPT Codes EKG - CPT: [id number], Complete ([id number]) Time Spent (min) 24
== END 2023-09-01 13:45 | disposition home or self-care (01) ==
PROVIDERS: PCP Internal Medicine; Visit Provider Nurse Practitioner Family
DX: I31.9 Disease of pericardium, unspecified (principal); Z98.890 Other specified postprocedural states; I48.0 Paroxysmal atrial fibrillation; I10 Essential (primary) hypertension
CPT/HCPCS: 93010; 99213

== ENCOUNTER → 2023-09-01 13:22 | Outpatient (BNVA) | payer OTHER, SELFPAY | PROVIDERS: PCP Internal Medicine; Visit Provider Nurse Practitioner Family | DX: I31.9 Disease of pericardium, unspecified (principal); I48.0 Paroxysmal atrial fibrillation; I10 Essential (primary) hypertension; Z98.890 Other specified postprocedural states | CPT/HCPCS: 93005 ==

== ENCOUNTER 2023-11-14 13:13 | Outpatient (REF) | payer OTHER, SELFPAY ==
[2023-11-14 13:25] LABS: MANUAL DIFF FLAG NO
[2023-11-14 13:41] LABS: Basophils Absolute Auto 0.1 X10*3/uL (0.0-0.2); Basophils Percent Auto 0.6 % (0-2); Eosinophils Absolute Auto 0.3 X10*3/uL (0.0-0.4); Eosinophils Percent Auto 3.4 % (0-4); Hematocrit 45.4 % (37.0-47.0); Hemoglobin 15.1 g/dl (12.0-16.0); Imm Gran Abs Auto 0.03 X10*3/uL (0.00-0.03); Imm Gran Pct Auto 0.3 % (0.0-0.4); Lymphocytes Absolute Auto 3.2 X10*3/uL (1.2-4.9); Lymphocytes Percent Auto 34.1 % (20-40); Mean Corpuscular HGB Conc 33.3 g/dl (31.0-35.0); Mean Corpuscular Hemoglobin 30.6 pg (27.0-33.0); Mean Corpuscular Volume 92.1 fL (80.0-98.0); Mean Platelet Volume 10.4 fL (9.4-12.3); Monocytes Absolute Auto 0.7 X10*3/uL (0.1-1.2); Monocytes Percent Auto 7.7 % (2-11); Neutrophils Percent Auto 53.9 % (45-73); Platelet Count 274 X10*3/uL (160-400); Red Blood Count 4.93 X10*6/uL (4.20-5.50); Red Cell Distribution Width 12.6 % (11.0-16.0); White Blood Count 9.3 X10*3/uL (4.8-10.8)
[2023-11-14 13:58] LABS: Estimated Average Glucose 214 mg/dL; Hemoglobin A1c % 9.1 % (<6.0)
[2023-11-14 14:26] LABS: Anion Gap 16 (12-20); Blood Urea Nitrogen 15 mg/dL (9-16); Calcium 10.3 mg/dL (8.4-10.2); Carbon Dioxide 23 mmol/L (22-29); Chloride 104 mmol/L (96-108); Estimated Glomerular Filt Rate > 60; Glucose Random 146 mg/dL (60-115); Potassium 4.5 mmol/L (3.3-5.1); Sodium 138 mmol/L (135-145); Uric Acid 3.5 mg/dL (2.4-5.7)
== END 2023-11-14 13:14 | disposition home or self-care (01) ==
LOC: HO.LAB 13:13
PROVIDERS: PCP Internal Medicine; Visit Provider Internal Medicine
DX: E11.9 Type 2 diabetes mellitus without complications (principal); I10 Essential (primary) hypertension
CPT/HCPCS: 36415; 80048; 83036; 84550; 85025

== ENCOUNTER 2023-11-26 12:43 | Outpatient (REF) | payer OTHER, SELFPAY ==
--- NOTE | ~2023-11-26 | XR_ITS ---
EXAMINATION: XR HIP, RIGHT CLINICAL INFORMATION: Chronic right hip pain, no injury COMPARISON: Right hip 07/09/2022 TECHNIQUE: Two views of the right hip. FINDINGS: No fracture or dislocation. Alignment is anatomic. Again seen is superior joint space narrowing with acetabular sclerosis and subchondral cystic formation similar to the prior study. Femoral collar osteophytes are present. XR/XR hip RT min 2V IMPRESSION: No acute osseous abnormality. Similar appearance of mild to moderate osteoarthritis of the right hip.
== END 2023-11-26 12:44 | disposition home or self-care (01) ==
LOC: HO.XRAY 12:43
PROVIDERS: PCP Internal Medicine; Visit Provider Internal Medicine
DX: M25.551 Pain in right hip (principal)
CPT/HCPCS: 73502

== ENCOUNTER 2024-01-15 10:48 | Outpatient (REF) | payer OTHER, SELFPAY | END 2024-01-15 10:49 | disposition home or self-care (01) | LOC: HO.MAMMO 10:48 | PROVIDERS: PCP Internal Medicine; Visit Provider Internal Medicine | DX: Z12.31 Encounter for screening mammogram for malignant neoplasm of breast (principal) | CPT/HCPCS: 77063; 77067 ==

== ENCOUNTER → 2024-01-15 11:00 | Outpatient (BNV) | payer OTHER, SELFPAY | PROVIDERS: PCP Internal Medicine; Visit Provider Radiology Diagnostic Radiology | DX: Z12.31 Encounter for screening mammogram for malignant neoplasm of breast (principal) | CPT/HCPCS: 77063; 77067 ==

== ENCOUNTER 2024-02-13 11:57 | Outpatient (REF) | payer OTHER, SELFPAY ==
[2024-02-13 12:40] LABS: Estimated Average Glucose 183 mg/dL
[2024-02-13 12:59] LABS: Anion Gap 11 (12-20); Blood Urea Nitrogen 20 mg/dL (9-16); Calcium 10.5 mg/dL (8.4-10.2); Carbon Dioxide 27 mmol/L (22-29); Chloride 106 mmol/L (96-108); Estimated Glomerular Filt Rate > 60; Glucose Random 189 mg/dL (60-115); Potassium 4.1 mmol/L (3.3-5.1); Sodium 140 mmol/L (135-145)
== END 2024-02-13 11:58 | disposition home or self-care (01) ==
LOC: HO.LAB 11:57
PROVIDERS: PCP Internal Medicine; Visit Provider Internal Medicine
DX: E11.9 Type 2 diabetes mellitus without complications (principal); I10 Essential (primary) hypertension
CPT/HCPCS: 36415; 80048; 83036

== ENCOUNTER 2024-06-11 15:53 | Outpatient (REF) | payer OTHER, SELFPAY ==
[2024-06-11 17:44] LABS: Appearance Urine Cloudy; Color Urine Yellow; Glucose Urine UA >=1000 mg/dL (Negative); Leukocyte Esterase Urine Small (1+) (Negative); Nitrite Urine Negative (Negative); PH 5.5 (5.0-9.0); Specific Gravity - Urine >= 1.030 (1.005-1.025); UMIC TRIGGER UACC YES; Urine Blood Moderate (2+) (Negative); Urine Ketones Negative (Negative); Urine Protein Trace mg/dL (Neg-Trace)
[2024-06-11 17:50] LABS: Bacteria Urine 4+ (None Seen); Hyaline Casts Urine 0-2 /LPF (0-2); Squamous Epithelial Cell Urine 0-2 /HPF (0-2); UACC Culture Trigger YES; WBC Urine >50 /HPF (0-5)
== END 2024-06-11 15:54 | disposition home or self-care (01) ==
LOC: HO.LAB 15:53
PROVIDERS: PCP Internal Medicine; Visit Provider Internal Medicine
DX: R30.0 Dysuria (principal)
CPT/HCPCS: 81001; 87086; 87088; 87186

== ENCOUNTER 2024-10-15 06:08 | Outpatient (REF) | payer OTHER, SELFPAY ==
[2024-10-15 06:23] LABS: MANUAL DIFF FLAG NO
[2024-10-15 07:03] LABS: Basophils Percent Auto 0.5 % (0-2); Eosinophils Absolute Auto 0.1 X10*3/uL (0.0-0.4); Eosinophils Percent Auto 1.7 % (0-4); Hematocrit 40.6 % (37.0-47.0); Hemoglobin 13.5 g/dl (12.0-16.0); Imm Gran Abs Auto 0.02 X10*3/uL (0.00-0.03); Imm Gran Pct Auto 0.3 % (0.0-0.4); Lymphocytes Absolute Auto 3.5 X10*3/uL (1.2-4.9); Lymphocytes Percent Auto 45.2 % (20-40); Mean Corpuscular HGB Conc 33.3 g/dl (31.0-35.0); Mean Corpuscular Hemoglobin 30.8 pg (27.0-33.0); Mean Corpuscular Volume 92.7 fL (80.0-98.0); Mean Platelet Volume 10.2 fL (9.4-12.3); Monocytes Absolute Auto 0.6 X10*3/uL (0.1-1.2); Monocytes Percent Auto 8.2 % (2-11); Neutrophils Absolute Auto 3.5 x10*3/uL (2.0-8.3); Neutrophils Percent Auto 44.1 % (45-73); Platelet Count 283 X10*3/uL (160-400); Red Blood Count 4.38 X10*6/uL (4.20-5.50); Red Cell Distribution Width 12.2 % (11.0-16.0); White Blood Count 7.8 X10*3/uL (4.8-10.8)
[2024-10-15 07:10] LABS: Estimated Average Glucose 180 mg/dL; Hemoglobin A1C 216.7805 umol/L; Hemoglobin A1c % 7.9 % (<6.0); Total Hemoglobin (HGBA1C) 3438.5883 umol/L
[2024-10-15 07:20] LABS: Alanine Aminotransferase 24 U/L (0-31); Albumin Level 4.5 g/dL (3.5-5.0); Alkaline Phosphatase 59 U/L (39-117); Anion Gap 13 (12-20); Aspartate Amino Transferase 22 U/L (5-31); Bilirubin Total 0.5 mg/dL (0.0-1.0); Blood Urea Nitrogen 17 mg/dL (9-16); Calcium 9.9 mg/dL (8.4-10.2); Carbon Dioxide 25 mmol/L (22-29); Chloride 103 mmol/L (96-108); Cholesterol 156 mg/dL (<200); Estimated Glomerular Filt Rate > 60; Glucose Fasting 103 mg/dL (60-99); HDL Cholesterol 44 mg/dL (>40); LDL Cholesterol Calculated 92 mg/dL (<100); Potassium 3.7 mmol/L (3.3-5.1); Sodium 137 mmol/L (135-145); Total Protein 7.4 g/dL (6.5-8.0); Triglycerides 100 mg/dL (<150)
[2024-10-15 08:51] LABS: Creatinine Urine 84.08 mg/dL; Microalbum/Creatinine Ratio Ur 14.2 ug/mg cr (<30)
== END 2024-10-15 06:09 | disposition home or self-care (01) ==
LOC: HO.LAB 06:08
PROVIDERS: PCP Internal Medicine; Visit Provider Internal Medicine
DX: I10 Essential (primary) hypertension (principal); E78.00 Pure hypercholesterolemia, unspecified; E11.9 Type 2 diabetes mellitus without complications
CPT/HCPCS: 36415; 80053; 80061; 82043; 82570; 83036; 85025

== ENCOUNTER 2024-11-09 12:20 | Outpatient (AMB) | payer OTHER, SELFPAY ==
--- NOTE | 2024-11-09 12:32 | A.OFFVIS_ITS ---
Vital Signs 11/09/24 12:40 Height 5 ft Weight 125 lb BMI 24.4 BP 116/62 Blood Pressure Location Lt brachial Position Sitting Pulse 59 Pulse Source Monitor Intake Visit Reasons: r/s 09/02/24 1 year followup w/ekg Allergies No Known Allergies [No Known Allergies*] Allergy (Verified 09/01/23 13:30) Medication List - Last Reconciled 11/09/24 by Gerard Marrero MD atorvastatin 10 mg PO DAILY colchicine 0.6 mg PO DAILY empagliflozin 25 mg PO DAILY indomethacin ER 75 mg PO DAILY PRN MDD 75mg lisinopril 10 mg PO DAILY metformin 500 mg PO BID metoprolol tartrate 25 mg PO BID omeprazole 20 mg PO DAILY HPI Comments Details: Sydney returns for follow-up regarding pericarditis. To recall, in 2016, she had incidental detection of pericardial effusion on a CT scan done for evaluation of hematuria. She had moderate sized effusion, but over time there was increase in size and she also had some chest pains. Then underwent pericardial window. Subsequently, has had several hospitalizations in the last few years for pericarditis. In 2020, she had palpitations and evidence of atrial fibrillation as well as NSVT on telemetry. Then started on colchicine. Now she is taking colchicine daily with indomethacin as needed. Otherwise, there is no history of any malignancy. Normal mammograms per patient. No history of chest radiation. No history of thyroid problems or autoimmune disease. She has type 2 diabetes, hypertension and dyslipidemia on appropriate medical therapy. Incidentally, her sister also got diagnosed in the past with pericardial effusion and had pericardial window surgery. Since last seen, no new issues. She states that previously, when she stopped the colchicine she got flare-ups and hence takes it daily. [facility] Medical History PAF (paroxysmal atrial fibrillation) Chronic idiopathic pericarditis HTN (hypertension) Pericarditis HLD (hyperlipidemia) Diabetes Surgical History H/O: hysterectomy S/P pericardial window creation Family History Sister Pericarditis Social History Household Members: Family Housing: House Do you presently have visiting nurse or other home services: No Alcohol intake: never Comment: 'no pain' service: No Current occupational status: employed Review of Systems Const Denies weakness ENT Denies dizziness Card Denies chest pain, Denies chest pain with activity, Denies syncope, Denies rapid heart rate, Denies pedal edema, Denies edema, Denies leg edema, Denies lightheadedness, Denies palpitations, Denies dyspnea, Denies dyspnea on exertion and Denies orthopnea Resp Denies cough, Denies dyspnea and Denies dyspnea on exertion GI Denies hematochezia and Denies change in stool character Musc Denies abnormal gait, Denies muscle cramps, Denies muscle weakness, Denies numbness, Denies radiating pain into limb and Denies tingling Neuro Denies abnormal gait, Denies dizziness, Denies syncope, Denies numbness, Denies tingling and Denies weakness Endo Denies palpitations Physical Exam Vital Signs: Last Vital Signs Pulse 59 11/09/24 12:40 BP 116/62 11/09/24 12:40 BMI result Body Mass Index 24.4 Const General: comfortable and no acute distress Orientation/consciousness: patient oriented x3 HEENT Other: Unremarkable Head: Yes normal to inspection Neck Neck: Yes normal visual inspection Chest Chest palpation & inspection: normal inspection of the chest Resp Auscultation: clear to auscultation bilaterally Cardio Palpation: normal PMI Heart sounds: S1 normal heart sound present, S2 normal heart sound present, no gallops, no murmurs and no rubs GI Palpation (GI): Soft to palpation Back/Spine/Pelvis Other: unremarkable Skin General skin exam: no rashes or lesions noted Neuro General: patient oriented x3 Extrem General: Yes normal to inspection Psych Mental Status: mental status grossly normal Office Procedures EKG Details: EKG with sinus bradycardia at 59/Min; right atrial enlargement; no significant ST-T changes; [place] [address]-[id number], Complete Assessment & Plan Assessment & Plan (1) Chronic idiopathic pericarditis: Code(s): I31.9 - Disease of pericardium, unspecified Category: Medical Qualifiers: Chronic pericarditis complication: unspecified complication status Qualified Code(s): I31.9 - Disease of pericardium, unspecified Plan: She is on a maintenance dose of colchicine once a day. As she has not had any flare-ups, can try taking it alternate days. Listed on indomethacin as needed but not taking it. Periodically check labs including CBC, BMP, liver panels. Discussed about this with patient. Most recently, unremarkable. In the past, she underwent detailed workup. No known malignancy. TSH/CRP/rheumatoid factor unremarkable. Rest of rheumatology panel did not show any significant findings. CT chest unremarkable. Pathology of the fluid had shown no malignancy. Cardiac MRI did not show any myocarditis or pericarditis (2) PAF (paroxysmal atrial fibrillation): Code(s): I48.0 - Paroxysmal atrial fibrillation Category: Medical Plan: This happened in the setting of acute pericarditis. 30 day event monitor in the past without evidence of recurrence. Continue beta-blockers. In the absence of recurrent arrhythmia, no indication for anticoagulation. Continue beta-blockers. (3) NSVT (nonsustained ventricular tachycardia): Code(s): I47.2 - Ventricular tachycardia Category: Medical Plan: Also noted during the acute pericarditis episode but nothing on outpatient monitoring. May remain on beta-blockers. (4) Type 2 diabetes mellitus with unspecified complications: Code(s): E11.8 - Type 2 diabetes mellitus with unspecified complications Category: Medical Plan: Hemoglobin A1c is 7.9 %. Less than optimal. She is on metformin and empagliflozin. (5) Essential hypertension: Code(s): I10 - Essential (primary) hypertension Category: Medical Plan: Stable. Continue lisinopril. Coding Level of Care Code Est Pt Level 4 (22190) Diagnoses Chronic idiopathic pericarditis, unspecified complication status I31.9 Chronic pericarditis complication: unspecified complication status PAF (paroxysmal atrial fibrillation) I48.0 NSVT (nonsustained ventricular tachycardia) I47.2 Type 2 diabetes mellitus with unspecified complications E11.8 Essential hypertension I10 CPT Codes EKG - CPT: 12900-[id number], Complete ([id number])
[2024-11-09 12:40] VITALS: BP 116/62; PULSE 59; BMI 24.4
== END 2024-11-09 12:53 | disposition home or self-care (01) ==
PROVIDERS: PCP Internal Medicine; Visit Provider Internal Medicine
DX: I31.9 Disease of pericardium, unspecified (principal); I48.0 Paroxysmal atrial fibrillation; I47.20 Ventricular tachycardia, unspecified; E11.8 Type 2 diabetes mellitus with unspecified complications; I10 Essential (primary) hypertension
CPT/HCPCS: 93010; 99214

== ENCOUNTER → 2024-11-09 12:20 | Outpatient (BNVA) | payer OTHER, SELFPAY | PROVIDERS: PCP Internal Medicine; Visit Provider Internal Medicine | DX: I31.9 Disease of pericardium, unspecified (principal); I48.0 Paroxysmal atrial fibrillation; I47.20 Ventricular tachycardia, unspecified; E11.8 Type 2 diabetes mellitus with unspecified complications; I10 Essential (primary) hypertension; Z79.84 Long term (current) use of oral hypoglycemic drugs; Z79.899 Other long term (current) drug therapy | CPT/HCPCS: 93005 ==

== ENCOUNTER 2025-01-20 10:01 | Outpatient (REF) | payer OTHER, SELFPAY | END 2025-01-20 10:02 | disposition home or self-care (01) | LOC: HO.MAMMO 10:01 | PROVIDERS: PCP Internal Medicine; Visit Provider Internal Medicine | DX: Z12.31 Encounter for screening mammogram for malignant neoplasm of breast (principal) | CPT/HCPCS: 77063; 77067 ==

== ENCOUNTER → 2025-01-20 10:15 | Outpatient (BNV) | payer OTHER, SELFPAY | PROVIDERS: PCP Internal Medicine; Visit Provider Internal Medicine | DX: Z12.31 Encounter for screening mammogram for malignant neoplasm of breast (principal) | CPT/HCPCS: 77063; 77067 ==

== ENCOUNTER 2025-05-17 13:01 | Outpatient (AMB) | payer OTHER, SELFPAY ==
--- NOTE | 2025-05-17 08:31 | A.OFFPC_ITS ---
Vital Signs 05/17/25 13:10 Height 5 ft Weight 131 lb BMI 25.6 BP 120/76 Blood Pressure Location Rt brachial Position Sitting Pulse 64 Pulse Source Pulse Oximeter Temp 97.9 F Temp Source Temporal Artery Scan Pulse Oximetry (%) 98 Oxygen Delivery Method Room Air Intake Visit Reasons: physical Ticker Installer Required: No Accompanied by: Self / Same As Patient Allergies No Known Allergies (No Known Allergies*) Allergy (Verified 05/17/25 08:32) Tobacco use date assessed: 05/17/25 Dental Screening Dental Screen Date: 05/17/25 Did you have a dental visit in the last 12 months?: No Did you have a dental problem in the last 6 months where you did not have access to dental care?: No HPI HPI Comments History of Present Illness Details 59 year old female with T2DM, Chronic id iopathic pericarditis, HTN, HLD, Afib, Aflutter and GERD here for follow up. She is on Metformin, Jardiance and Glipizide. Her last A1C was done in September and was 7.9%. She states her last eye exam was in February. She was seen by Cardiology in October for her pericarditis, Afib and AFlutter. She was felt to be stable and will follow up in a year. She is on Lisinopril and Metoprolol. Her BP today was 120/76. She is on Atorvastatin for HLD and needs a refill. She is on Omeprazole for GERD. Her last mammogram was 02/13. She is due for colonoscopy in 06/2026. She states she had her last PAP around 20 years ago. Her chart states that she had a hysterectomy but she states that is not true. I will remove it from her chart. [facility] Medical History (Updated 05/17/25 @ 14:04 by GÉNESIS Wells) Chronic idiopathic pericarditis Diabetes GERD without esophagitis HLD (hyperlipidemia) HTN (hypertension) PAF (paroxysmal atrial fibrillation) Pericarditis Surgical History (Updated 05/17/25 @ 14:01 by GÉNESIS Wells) History of colonoscopy (~07/12/16) S/P pericardial window creation Family History (Updated 05/17/25 @ 13:15 by Beatriz Alvares MA) Sister Pericarditis Mother No problems noted. Father No problems noted. Social History Household Members: Family Housing: House Do you presently have visiting nurse or other home services: No Alcohol intake: never Comment: 'no pain' Patient Tobacco Use Status: Never used Tobacco e-Cigarette/Vaping Use: Never Used service: No Current occupational status: employed Cognitive needs: No Hearing needs: No Vision needs: Yes (reading glasses) Questionnaire PHQ-9 Over the last 2 weeks, how often have you been bothered by any of the following problems? 1. Little interest or pleasure in doing things: not at all 2. Feeling down, depressed, or hopeless: not at all 3. Trouble falling or staying asleep, or sleeping too much: not at all 4. Feeling tired or having little energy: not at all 5. Poor appetite or overeating: not at all 6. Feeling bad about yourself - or that you are a failure or have let yourself or your family down: not at all 7. Trouble concentrating on things, such as reading the newspaper or watching television: not at all 8. Moving or speaking so slowly that other people could have noticed. Or the opposite - being so fidgety or restless that you have been moving around a lot more than usual: not at all 9. Thoughts that you would be better off or of hurting yourself in some way: not at all Total score: 0 Source: Developed by Drs. Garry Joyce, Shertia Sigala, Harshad Khan and colleagues, with an educational jazz from [employer]. Thrive Questionnaire Date Thrive assessed: 05/17/25 I am a: Patient Within the past 12 months, did the food you bought not last and you didn't have the money to get more?: Never true Within the past 12 months, did you worry whether your food would run out before you got money to buy more?: Never true Do you have trouble paying for medicines?: No Do you have trouble getting transportation to medical appointments?: No Do you have trouble paying your heating and electricity bill?: No Do you have trouble taking care of your child, family member or friend?: No Do you have trouble with day-to-day activities such as bathing, preparing meals, shopping, managing finances, etc.?: No Are you currently unemployed and looking for a job?: No Are you interested in more education?: No THRIVE Score: 0 AUDIT C Alcohol Use Questionnaire (AUDIT-C) 1. How often do you have a drink containing alcohol?: Never 3. How often do you have six or more drinks on one occasion?: Never Total Score: 0 CLINTON-7 AMB Questionnaire CLINTON-7 Date CLINTON - 7 assessed: 05/17/25 Feeling nervous, anxious, or on edge: 0 = Not at all Not being able to stop or control worryin = Not at all Worrying too much about different things: 0 = Not at all Trouble relaxin = Not at all Being so restless that it is hard to sit still: 0 = Not at all Becoming easily annoyed or irritable: 0 = Not at all Feeling afraid as if something awful might happen: 0 = Not at all Total CLINTON-7 score (0-4 normal; 5-9 mild; 10-14 moderate; 15-21 severe): 0 Source: Developed by Drs. Garry Joyce, Sherita Sigala, Harshad Khan and colleagues, with an educational jazz from [employer]. Review of Systems Const Details: CONSTITUTIONAL 6 weight gain HEAD/NECK Negative EAR/NOSE/MOUTH/THROAT Negative RESPIRATORY Negative CARDIOVASCULAR Negative GASTROINTESTINAL Negative NEUROLOGICAL Negative PSYCHIATRIC Negative Physical exam (Primary Care) Vital Signs: Last Vital Signs Temp 97.9 F 05/17/25 13:10 Pulse 64 05/17/25 13:10 BP 120/76 05/17/25 13:10 Pulse Ox 98 05/17/25 13:10 Oxygen Delivery Method Room Air 05/17/25 13:10 BMI result Body Mass Index 25.6 GENERAL Well developed, Well nourished, in noapparent distress HEENT Head-Normocephalic Eyes- PERRLA, EOMI, Conjuctiva clear, lids WNL Ears- Canals clear, TMs WNL Mouth/Throat-No lesions, no erythema, no exudate Neck- Supple, No lymphadenopathy, thyroid WNL RESPIRATORY Normal I:E, Clear to auscultation CARDIOVASCULAR Regular, rate and rhthym, No murmurs or rubs GASTROINTESTINAL Soft, nontender, normal bowel sounds, no masses NEUROLOGICAL Gait normal PSYCHIATRIC Oriented to person, place and time Mood and affect WNL Appearance WNL Speech WNL Thought processes WNL Tobacco/Smoking Status: Tobacco use Status Tobacco use date assessed 05/17/25 05/17/25 08:33 Patient Tobacco Use Status Never used Tobacco 05/17/25 08:33 e-Cigarette/Vaping Use Never Used 05/17/25 13:15 PHQ-9: PHQ-9 Score PHQ-9: Total score 0 05/17/25 13:15 Thrive Assessment: Date of Thrive Assessment Date Thrive assessed 05/17/25 05/17/25 08:33 Coding Level of Care Code Established Pt Est Pt Level 4 (22036) Patient Type Established Diagnoses Type 2 diabetes mellitus with unspecified complications E11.8 Essential hypertension I10 PAF (paroxysmal atrial fibrillation) I48.0 Chronic idiopathic pericarditis, unspecified complication status I31.9 Chronic pericarditis complication: unspecified complication status GERD without esophagitis K21.9 Time Spent (min) 35 Comment Time spent on chart review, H&P, placing orders and referrals, arranging follow up Assessment & Plan Assessment & Plan (1) Type 2 diabetes mellitus with unspecified complications: Code(s): E11.8 - Type 2 diabetes mellitus with unspecified complications Category: Medical Plan: Will get Labs. Patient will continue current medications. Will monitor. Patient will follow up in 3-4 months. (2) Essential hypertension: Code(s): I10 - Essential (primary) hypertension Category: Medical Plan: Controlled. BP today was 120/76. Patient will continue current medications. Will monitor. Patient will follow up in 3-4 months. (3) PAF (paroxysmal atrial fibrillation): Code(s): I48.0 - Paroxysmal atrial fibrillation Category: Medical Plan: Patient followed by Cardiology (4) Chronic idiopathic pericarditis: Code(s): I31.9 - Disease of pericardium, unspecified Category: Medical Qualifiers: Chronic pericarditis complication: unspecified complication status Qualified Code(s): I31.9 - Disease of pericardium, unspecified Plan: Patient followed by Cardiology (5) GERD without esophagitis: Code(s): K21.9 - Gastro-esophageal reflux disease without esophagitis Category: Medical Plan: Controlled on Omeprazole. Patient will continue current medications. Will monitor. Patient will follow up in 3-4 months. Plan Will refer to [facility] for PAP Orders: Orders Comprehensive Met. Panel Today E11.8 - Type 2 diabetes mellitus with unspecified complications, Z79.899 - Other longitudinal float operator (current) drug therapy Hemoglobin A1c Today E11.8 - Type 2 diabetes mellitus with unspecified complications Referrals [facility] Referral Z01.419 - Encounter for gynecological examination (general) (routine) without abnormal findings Medications: New empagliflozin 25 mg PO DAILY 90 tabs 1RF diabetes glipizide ER 5 mg PO DAILY 90 tabs 1RF diabetes lisinopril 10 mg PO DAILY 90 tabs 1RF blood pressure omeprazole 20 mg PO DAILY 90 caps 1RF for acid atorvastatin 10 mg PO DAILY 90 tabs 3RF cholesterol Refilled metformin 500 mg PO BID 180 tabs 1RF
[2025-05-17 13:10] VITALS: BP 120/76; PULSE 64; TEMP 36.6; O2SAT 98; BMI 25.6
--- OUTSIDE RECORDS SUMMARY | 2025-05-17 13:46 | XMS_ITS | Patient Health Record ---
Author Organization [facility] Address [address] [place] [address] Care Team Providers Care Chainer Name Role Phone Raulito (RETIRED) Aristeo FOWLER Primary Care Provide r Unavailable Garry Figueroa Unavailable [phone] Reason For Referral No Information Medications Medication SIG (Take, Route, Frequency, Duration) Notes Start Date End Date Status Caltrate 600 Active Problems Problem Type SNOMED Code ICD Code Onset Dates Problem Status W/U Status Risk Notes Problem 120725917 Encounter for screening for malignant neoplasm of colon (Z12.11) Active confirmed Problem Screening for malignant neoplasm of rectum (058605001) Encounter for screening for malignant neoplasm of rectum (Z12.12) Active confirmed Problem [id number] 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 Plan Of Treatment Pending Test Test Name Order Date GI BIOPSY 07/12/2016 Future Test Test Name Order Date COLONOSCOPY 04/11/2016 Insurance Providers Payer Name Payer Address Payer Phone Subscriber Number Group Number Insured Name Patient Relationship to Insured Coverage Start Date Coverage End Date [facility] [address] [place] [phone] [id number] RAJWINDER STEPHENSON Self - patient is the insured Medical (General) History Medical History History ICD Code Denies [place],DM,CVA,Lung disease,renal dise ase ulcerative proctitis diagnos ed in the --she has not been on any medication for many, many years colonoscopy in September 2004 revealed a mild distal ulcerative proctitis, but biopsies throughout the colon were all negative for dysplasia. Surgical History Surgery Date(Month/Year) section X3 1993,1997,1999 tubal ligation 1999 hernia repair
--- OUTSIDE RECORDS SUMMARY | 2025-05-17 13:46 | XMS_ITS | Clinical Summary ---
Author Organization [facility] Address [address] [place] [id number] Phone Care Team Providers Care Truss Driver Helper Name Role Phone Aristeo Cabezas MD Primary Care Provider Allergies No known active allergies Medications lisinopril (PRINIVIL,ZESTRI L) 5 MG tablet Take 5 mg by mouth daily. Active atorvastatin (LIPITOR) 10 MG tablet Take 10 mg by mouth daily. Active metFORMIN (GLUCOPHAGE) 500 MG tablet Take 500 mg by mouth daily with breakfast. Active colchicine (COLCRYS) 0.6 mg tablet Take 0.6 mg by mouth 2 (two) times a day. Active Social History Tobacco Use Types Packs/Day Years Used Date Smoking Tobacco: Never Smokeless Tobacco: Never Education Answer Date Recorded Are you interested in more education? Not on ciaran e 01/17/2023 Are you concerned about learning? Not on file 01/17/2023 No 01/17/2023 No 01/17/2023 Digital Access Answer Date Recorded No 02/18/2023 No 02/18/2023 No 02/18/2023 Reliable internet access at home? Not on file 02/18/2023 Device with a working camera? Not on file Comments Unknown Sex and Gender Information Value Date Recorded Sex Assigned at Female 06/16/2019 2:26 PM EDT Legal Sex Female 2:22 PM EDT Gender Identity Female 06/16/2019 2:26 PM EDT Sexual Orientation Straight 06/16/2019 2: 26 PM EDT Last Filed Vital Signs Vital Sign Reading Time Taken Comments Blood Pressure 124/90 06/30/2019 12:58 PM EDT Pulse 90 06/30/2019 12:58 PM EDT Temperature - - Respiratory Rate - - Oxygen Saturation - - Inhaled Oxygen Concentration - - Weight 64.4 kg (141 lb 14.4 oz) 019 12:58 PM EDT shoes Height - - Body Mass Index - - Plan of Treatment Health Maintenance Due Date Last Done Comments Adult Td,Tdap Booster 1965 CREATININE LEVEL 1965 LIPID PANEL 1963 POTASSIUM LEVEL 1965 HEPATITIS C SCREENING 1981 HIV ONE-TIME SCREENING (18-6 5 YEARS) 1981 PAP SMEAR 1984 SMOKING STATUS SCREENING (On ce After 26 Yrs) 1989 MAMMOGRAM 2003 COLOGUARD 2008 COLONOSCOPY 2008 COLORECTAL CANCER SCREENING 2008 FIT TEST 2008 FOBT 2008 SIGMOIDOSCOPY 2008 VIRTUAL COLONOSCOPY 2008 PNEUMOCOCCAL VACCINES (50+ years) (1 of 1 - PCV) 2013 ZOSTER VACCINES (1 of 2) 2013 DEPRESSION SCREENING 06/30/2020 06/30/2019 COVID-19 VACCINE (3 - 2023-2 5 season) 2024 09/30/2020, 09/08/2020 RSV VACCINE (1 - 1-dose 75+ series) 2038 HEPATITIS A VACCINES Aged Out No long er eligible based on patient's age to complete this topic HIB VACCINES Aged Out No longer eligi ble based on patient's age to complete this topic MENINGOCOCCAL VACCINES (ACWY) Aged Out No longer eligible based on patient's age to complete this topic MENINGOCOCCAL VACCINES (B) Aged Out N o longer eligible based on patient's age to complete this topic Medical Devices Not on file Insurance [facility] UMR UMR R UMR UMR R UMR R Care Teams Truss Driver Helper Relationship Specialty Start Date End Date Aristeo Cabezas MD [address] [place] [address] [place] [address] PCP - General Internal Medicine 06/16/19 Additional Source Comments The information contained in this document represents components of the legal health record. It is not the complete legal health record.[facility]
== END 2025-05-17 13:35 | disposition home or self-care (01) ==
LOC: HO.HMCHD 13:01
PROVIDERS: PCP Internal Medicine; Visit Provider Physician Assistant Medical
DX: Z00.00 Encounter for general adult medical examination without abnormal findings (principal); E11.8 Type 2 diabetes mellitus with unspecified complications; I10 Essential (primary) hypertension; I48.0 Paroxysmal atrial fibrillation; I31.9 Disease of pericardium, unspecified; K21.9 Gastro-esophageal reflux disease without esophagitis

== ENCOUNTER 2025-08-25 08:57 | Outpatient (REF) | payer OTHER, SELFPAY ==
--- OUTSIDE RECORDS SUMMARY | 2025-08-25 09:43 | XMS_ITS | Clinical Summary ---
Author Organization [facility] Address [address] [place] [phone] Phone Care Team Providers Care Supervisor Roller Printing Name Role Phone Aristeo Cabezas MD Primary [...] HEPATITIS C SCREENING 1981 HIV ONE-TIME SCREENING (18-65 YEARS) 1981 PAP SMEAR 1984 SMOKING STATUS SCREENING (Once After 26 Yrs) 1989 MAMMOGRAM 2003 COLOGUARD 2008 COLONOSCOPY 2008 COLORECTAL CANCER SCREENING 2008 FIT TEST 2008 FOBT 2008 SIGMOIDOSCOPY 2008 VIRTUAL COLONOSCOPY 2008 PNEUMOCOCCAL VACCINES (50+ years) (1 of 1 - PCV) 2013 ZOSTER VACCINES (1 of 2) 2013 DEPRESSION SCREENING 06/30/2020 06/30/2019 INFLUENZA VACCINE (#1) 2025 , 07/16/2019, 07/14/2018, Additional history exists COVID-19 VACCINE (3 - 2024- season) 2025 09/30/2020, 09/08/2020 RSV VACCINE (1 - 1-dose [...] topic Medical Devices Not on file Insurance [employer] * Guarantor: Sydney Mcghee Account Type Relation to Patient Date of Phone Billing Address Personal/Family Self [address] [place], [place] [address]R * Guarantor: Sydney Mcghee Account Type Relation to Patient Date of Phone Billing Address Personal/Family Self [address] [place], [place] [address]R * Guarantor: TazSydney lopez Account Type Relation to Patient Date of Phone Billing Address Personal/Family Self [address] [place], [place] [address]R Care Teams Supervisor Roller Printing Relationship Specialty Start Date End Date Aristeo Cabezas MD [address] [place] [address] [place] [address] PCP - General Internal Medicine 06/16/19 Additional Source Comments The information contained in this document represents components of the legal health record. It is not the complete legal health record.[facility]
[2025-08-25 09:55] LABS: Alanine Aminotransferase 23 U/L (0-31); Albumin Level 4.7 g/dL (3.5-5.0); Alkaline Phosphatase 64 U/L (39-117); Anion Gap 11 (12-20); Aspartate Amino Transferase 20 U/L (5-31); Blood Urea Nitrogen 23 mg/dL (9-16); Calcium 10.0 mg/dL (8.4-10.2); Carbon Dioxide 24 mmol/L (22-29); Chloride 109 mmol/L (96-108); Estimated Glomerular Filt Rate > 60; Potassium 4.2 mmol/L (3.3-5.1); Sodium 140 mmol/L (135-145); Total Protein 7.3 g/dL (6.5-8.0)
== END 2025-08-25 08:58 | disposition home or self-care (01) ==
LOC: HO.LAB 08:57
PROVIDERS: PCP Physician Assistant; Visit Provider Physician Assistant Medical
DX: E11.8 Type 2 diabetes mellitus with unspecified complications (principal); Z79.899 Other long term (current) drug therapy
CPT/HCPCS: 36415; 80053; 83036

== ENCOUNTER 2025-09-06 13:18 | Outpatient (AMB) | payer OTHER, SELFPAY ==
--- NOTE | 2025-09-06 13:20 | A.OFFPC_ITS ---
Vital Signs 09/06/25 13:24 Height 5 ft Weight 58.06 kg BMI 25.0 BP 130/68 Blood Pressure Location Lt brachial Position Sitting Respiration 18 Pulse 68 Pulse Source Pulse Oximeter Temp 97.3 F Temp Source Temporal Artery Scan Pulse Oximetry (%) 98 Oxygen Delivery Method Room Air Intake Visit Reasons: 4 Month F/U Potato Loader Required: No Accompanied by: Self / Same As Patient Allergies No Known Allergies (No Known Allergies*) Allergy (Verified 09/06/25 13:20) Medication List - Last Reconciled 09/06/25 by GÉNESIS Lora atorvastatin 10 mg PO DAILY blood sugar diagnostic (Contour Next Test Strips) As directed colchicine 0.6 mg PO DAILY empagliflozin 25 mg PO DAILY glipizide ER 5 mg PO DAILY indomethacin ER 75 mg PO DAILY PRN lancets (Microlet Lancet) As directed lisinopril 10 mg PO DAILY metformin 500 mg PO BID metoprolol tartrate 25 mg PO BID omeprazole 20 mg PO DAILY Tobacco use date assessed: 05/17/25 Dental Screening Dental Screen Date: 05/17/25 HPI HPI Comments History of Present Illness Details 59 year old female with T2DM, Chronic id iopathic pericarditis, HTN, HLD, Afib, Aflutter and GERD here for follow up. T2DM- typically 130s- 140s in am. Overall good about diabetic diet. Recent A1c 8.1%. Compliant with metformin 500 mg twice daily, glipizide 5 mg ER and Jardiance 25 mg daily. Eye exam up to date. Dr. Denis. H/o pericarditis- hx effusion, s/p pericardial window. On colchicine every other day. Unclear etiology. Atrial fibrillation-single episode when she had pericarditis. Not on ant icoagulation. Does follow with cardiology annually, last seen 10/2024. Asymptomatic. She is on metoprolol twice daily Hypertension-blood pressure 130/68. On lisinopril 10 mg daily, metoprolol 25 mg twice daily. Hyperlipidemia-last LDL 92, goal less than 70. On atorvastatin 10 mg daily GERD-Prilosec Concerns: L shoulder pain. Ongoing years. Worse after shoveling snow. Sore at rest 1-2/10. Clicking sound. Denies any injury. There is some weakness when lifting but this is secondary to pain. No paresthesias. Health maintenance: [employer] Truck [employer] scheduled for October Colonoscopies up-to-date Dr. Figueroa. Do Mammograms up-to-date ROS: See HPI EXAM: Constitutional - Awake and Alert, No apparent distress Eyes - PERRL Cardiovascular - S1S2, RRR, No edema Respiratory - Normal lung expansion, Normal respiratory effort, No respiratory distress, CTA bilaterally Extremities - no calf tenderness bilaterally, no swelling MSK-left shoulder-nontender to palpation. No swelling or effusion. Pain with abduction. 5/5 strength in the upper extremities bilaterally Skin - Warm/Dry Neurological - Alert & oriented x3 Psychological - Appropriate [facility] Medical History (Updated 09/06/25 @ 13:35 by GÉNESIS Lora) GERD without esophagitis PAF (paroxysmal atrial fibrillation) Chronic idiopathic pericarditis HTN (hypertension) Pericarditis HLD (hyperlipidemia) Diabetes Surgical History (Updated 09/06/25 @ 13:41 by GÉNESIS Lora) S/P tubal ligation History of colonoscopy (~07/12/16) S/P pericardial window creation Family History (Updated 05/17/25 @ 13:15 by Beatriz Alvares MA) Sister Pericarditis Mother No problems noted. Father No problems noted. Social History Household Members: Family Housing: House Do you presently have visiting nurse or other home services: No Alcohol intake: never Comment: 'no pain' Patient Tobacco Use Status: Never used Tobacco e-Cigarette/Vaping Use: Never Used service: No Current occupational status: employed Cognitive needs: No Hearing needs: No Vision needs: Yes (reading glasses) Questionnaire Thrive Questionnaire Date Thrive assessed: 05/17/25 AUDIT C Alcohol Use Questionnaire (AUDIT-C) 3. How often do you have six or more drinks on one occasion?: Never Total Score: 0 CLINTON-7 AMB Questionnaire CLINTON-7 Date CLINTON - 7 assessed: 05/17/25 Source: Developed by Drs. Garry Joyce, Sherita Sigala, Harshad Khan and colleagues, with an educational jazz from [employer]. Physical exam (Primary Care) Vital Signs: Last Vital Signs Temp 97.3 F 09/06/25 13:24 Pulse 68 09/06/25 13:24 Resp 18 09/06/25 13:24 BP 130/68 09/06/25 13:24 Pulse Ox 98 09/06/25 13:24 Oxygen Delivery Method Room Air 09/06/25 13:24 BMI result Body Mass Index 25.0 Tobacco/Smoking Status: Tobacco use Status Tobacco use date assessed 05/17/25 09/06/25 13:21 Patient Tobacco Use Status Never used Tobacco 09/06/25 13:21 e-Cigarette/Vaping Use Never Used 09/06/25 13:21 Thrive Assessment: Date of Thrive Assessment Date Thrive assessed 05/17/25 09/06/25 13:21 Coding Level of Care Code Est Pt Level 4 (55420) Add On Problem Visit Only Diagnoses Type 2 diabetes mellitus with unspecified complications E11.8 Essential hypertension I10 PAF (paroxysmal atrial fibrillation) I48.0 Chronic idiopathic pericarditis, unspecified complication status I31.9 Chronic pericarditis complication: unspecified complication status Left shoulder pain M25.512 Assessment & Plan Assessment & Plan (1) Type 2 diabetes mellitus with unspecified complications: Code(s): E11.8 - Type 2 diabetes mellitus with unspecified complications Category: Medical Plan: Uncontrolled. She will work on improving diabetic diet. Continue current medications. If no improvements at next visit, consider medication adjustment. Continue with annual eye exams (2) Essential hypertension: Code(s): I10 - Essential (primary) hypertension Category: Medical Plan: Controlled. BP today was 130/68. Patient will continue current medications. (3) PAF (paroxysmal atrial fibrillation): Code(s): I48.0 - Paroxysmal atrial fibrillation Category: Medical Plan: Patient followed by Cardiology. Continue rate control (4) Chronic idiopathic pericarditis: Code(s): I31.9 - Disease of pericardium, unspecified Category: Medical Qualifiers: Chronic pericarditis complication: unspecified complication status Qualified Code(s): I31.9 - Disease of pericardium, unspecified Plan: Patient followed by Cardiology. Continue colchicine (5) Left shoulder pain: Code(s): M25.512 - Pain in left shoulder Category: Medical Plan: XR L shoulder ordered, referred to orhto. Ibuprofen, tylenol, ice, topicals. Given exercises to perform at home. Plan Follow up in 3 months, sooner if needed Orders: Orders XR shoulder LT min 2V 09/07/25 M25.512 - Pain in left shoulder Basic Metabolic Panel 3 Months E11.8 - Type 2 diabetes mellitus with unspec ified complications, I10 - Essential (primary) hypertension, I48.0 - Paroxysmal atrial fibrillation Liver Panel 3 Months E11.8 - Type 2 diabetes mellitus with unspecified co mplications, I10 - Essential (primary) hypertension, I48.0 - Paroxysmal atrial fibrillation Hemoglobin A1c 3 Months E11.8 - Type 2 diabetes mellitus with unspecified complications, I10 - Essential (primary) hypertension, I48.0 - Paroxysmal atrial fibrillation Lipid Panel 3 Months E11.8 - Type 2 diabetes mellitus with unspecified complications, I10 - Essential (primary) hypertension, I48.0 - Paroxysmal atrial fibrillation Referrals Orthopedics Referral M25.512 - Pain in left shoulder Medications: Refilled omeprazole 20 mg PO DAILY 90 caps 1RF for acid
[2025-09-06 13:24] VITALS: BP 130/68; PULSE 68; RESP 18; TEMP 36.3; O2SAT 98; BMI 25.0
--- OUTSIDE RECORDS SUMMARY | 2025-09-06 17:19 | XMS_ITS | Clinical Summary ---
Author Organization [facility] Address [address] [place] [id number] Phone Care Team Providers Care Mc Kay Machine Operator Name Role Phone Aristeo Cabezas MD Primary [...] Devices Not on file Insurance UNITED R R R R Care Teams Mc Kay Machine Operator Relationship Specialty Start Date End Date Aristeo Cabezas MD [address] [place] [address] [place] [address] PCP - General Internal Medicine 06/16/19 Additional Source Comments The information contained in this document represents components of the legal health record. It is not the complete legal health record.[facility]
== END 2025-09-06 13:49 | disposition home or self-care (01) ==
LOC: HO.HMCHD 13:19
PROVIDERS: PCP Physician Assistant; Visit Provider Physician Assistant
DX: E11.8 Type 2 diabetes mellitus with unspecified complications (principal); I10 Essential (primary) hypertension; I48.0 Paroxysmal atrial fibrillation; I31.9 Disease of pericardium, unspecified; M25.512 Pain in left shoulder

== ENCOUNTER 2025-09-07 11:44 | Outpatient (REF) | payer OTHER, SELFPAY ==
--- NOTE | ~2025-09-07 | XR_ITS ---
EXAMINATION: XR SHOULDER, LEFT CLINICAL INFORMATION: M25.512 - Pain in left shoulder COMPARISON: February 25, 2017 TECHNIQUE: AP external rotation, Grashey, scapular Y, and axillary views of the left shoulder. FINDINGS: 12 mm well-corticated calcification at the supraspinatus tendon region. No acute fracture or dislocation. No lytic or blastic lesions. XR/XR shoulder LT min 2V IMPRESSION: Calcific tendinosis/tendinopathy, left supraspinatus tendon region. Electronically signed by: Ihsan Colon MD 09/07/2025 12:01 PM DEANN VERDIN
--- OUTSIDE RECORDS SUMMARY | 2025-09-07 15:40 | XMS_ITS | Clinical Summary ---
Author Organization [facility] Address [address] [place] [id number] Phone Care Team Providers Care Rivet Spinner Name Role Phone Aristeo Cabezas MD Primary [...] UNITED R R R R Care Teams Rivet Spinner Relationship Specialty Start Date End Date Aristeo Cabezas MD [address] [place] [address] [place] [address] PCP - General Internal Medicine 06/16/19 Additional Source Comments The information contained in this document represents components of the legal health record. It is not the complete legal health record.[facility]
--- OUTSIDE RECORDS SUMMARY | 2025-09-07 15:40 | XMS_ITS | Patient Health Record ---
Author Organization [facility] Address [address] [place] [address] Care Team Providers Care Glove Turner And Former Name Role Phone Raulito (RETIRED) Aristeo FOWLER Primary Care Provide r Unavailable Garry Figueroa Unavailable [phone] Reason For Referral No Information Medications Medication SIG (Take, Route, Frequency, Duration) Notes Start Date End Date Status Caltrate 600 Active Social History Social History Additional Details Category Social Info Options Details Miscellaneous: Marital status: Occupation: RN @ [employer] Problems Problem Type SNOMED Code ICD Code Onset Dates Problem Status W/U Status Risk Notes Problem Screening for malignant neoplasm of colon (457198957) Encounter for screening for malignant neoplasm of colon (Z12.11) Active confirmed Problem Screening for malignant neoplasm of rectum (611258565) Encounter for screening for malignant neoplasm of rectum (Z12.12) Active confirmed Problem Chronic ulcerative proctitis (32360031) 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 Plan Of Treatment Pending Test Test Name Order Date GI BIOPSY 07/12/2016 Future Test Test Name Order Date COLONOSCOPY 04/11/2016 Insurance Providers Payer Name Payer Address Payer Phone Subscriber Number Group Number Insured Name Patient Relationship to Insured Coverage Start Date Coverage End Date [facility] [address] [place] [phone] [id number] RAJWINDER STEPHENSON Self - patient is the insured Medical (General) History Medical History History ICD Code Denies HI,DM,CVA,Lung disease,renal dise ase ulcerative proctitis diagnos ed in the --she has not been on any medication for many, many years colonoscopy in September 2004 revealed a mild distal ulcerative proctitis, but biopsies throughout the colon were all negative for dysplasia. Surgical History Surgery Date(Month/Year) section X3 1993,1997,1999 tubal ligation 1999 hernia repair
== END 2025-09-07 11:45 | disposition home or self-care (01) ==
LOC: HO.XRAY 11:44
PROVIDERS: PCP Physician Assistant; Visit Provider Physician Assistant
DX: M25.512 Pain in left shoulder (principal)
CPT/HCPCS: 73030

== ENCOUNTER → 2025-09-07 11:48 | Outpatient (BNV) | payer OTHER, SELFPAY | PROVIDERS: PCP Physician Assistant; Visit Provider Radiology Diagnostic Radiology | DX: M75.32 Calcific tendinitis of left shoulder (principal) | CPT/HCPCS: 73030 ==